=== PATIENT | male | born 1945 | race Caucasian/White ===

== ENCOUNTER → 2016-11-29 | Outpatient (CLI) | payer MEDICARE, OTHER ==
--- NOTE | 2016-11-29 10:32 | US ---
EXAMINATION TYPE: US duplex aorta DATE OF EXAM: 11/29/2016 9:38 AM COMPARISON: NONE CLINICAL HISTORY: R00.1 Bradycardia R00.2 Palpitations. family history of AAA EXAM MEASUREMENTS: Abdominal Aorta: Proximal: 2.3 x 2.0 cm Mid: 1.9 x 1.9 cm Distal: 1.9 x 1.7 cm Bifurcation: right 1.2 x 1.7 cm left 1.3 x 1.5 cm normal caliber aorta IMPRESSION: No evidence for abdominal aortic aneurysm.
== END | disposition home or self-care (01) ==
LOC: RADUSMAIN 09:15
PROVIDERS: ATTEND Family Medicine
DX: R00.1 Bradycardia, unspecified (principal); R00.2 Palpitations
CPT/HCPCS: 93979

== ENCOUNTER 2016-12-29 10:52 | Inpatient (IN) | payer MEDICARE, OTHER ==
[2016-12-29] MEDS ORDERED: SODIUM CHLORIDE 0.9% 1,000 ML IV STA ×2 (11:04)
[2016-12-29 11:12] LABS: Glucose,Whole Blood 120 mg/dL (75-99)
--- NOTE | 2016-12-29 11:34 | CT ---
EXAMINATION TYPE: CT brain wo con DATE OF EXAM: 12/29/2016 11:29 AM COMPARISON: NONE HISTORY: 71-year-old male complains of right side body weakness and numbness. Slowly resolving. TECHNIQUE: Examination was done in axial plane without intravenous contrast. Coronal and sagittal r econstructions performed. CT DLP: 1058 mGycm Automated exposure control for dose reduction was used. FINDINGS: There is no evidence of acute intracranial hemorrhage, acute ischemic changes, mass, mass-effect, or extra-axial fluid collection. There is no effacement of cerebral sulci or basal subarachnoid cister ns. There is no hydrocephalus. There is no midline shift. Thompson-white matter distinction is preserv ed. Minimal patchy periventricular white matter hypodensity suggests minimal burden of chronic small vess el ischemic disease. Paranasal sinuses and mastoid air cells are well pneumatized. Orbits and globes are intact. IMPRESSION: No acute intracranial abnormality seen.
[2016-12-29 11:48] LABS: Basophils # (A) 0.1 k/uL (0-0.2); Basophils % (A) 1 %; CH 31.4; CHCM 34.1; Eosinophils # (A) 0.2 k/uL (0-0.7); Eosinophils % (A) 4 %; HCT 45.3 % (39.0-53.0); HDW 2.58; HGB 15.2 gm/dL (13.0-17.5); Luc # (Auto) 0.16; Luc % (Auto) 3; Lymphocytes % (A) 20 %; MCH 31.1 pg (25.0-35.0); MCHC 33.6 g/dL (31.0-37.0); MCV 92.4 fL (80.0-100.0); Monocytes # (A) 0.4 k/uL (0-1.0); Monocytes % (A) 8 %; Neutrophils # (A) 3.5 k/uL (1.3-7.7); Neutrophils % (A) 65 %; RDW 13.2 % (11.5-15.5); WBC 5.3 k/uL (3.8-10.6); WBC (Perox) 5.39
[2016-12-29 11:57] LABS: ALT 42 U/L (21-72); AST 34 U/L (17-59); Alkaline Phosphatase 55 U/L (38-126); Anion Gap 11 mmol/L; Blood Urea Nitrogen 10 mg/dL (9-20); Calcium 9.6 mg/dL (8.4-10.2); Carbon Dioxide 28 mmol/L (22-30); Chloride 106 mmol/L (98-107); Glucose 114 mg/dL (74-99); Non-African American GFR(MDRD) >60 (>60 ml/min/1.73 sqM); Partial Thromboplastin Time 25.3 sec (22.0-30.0); Potassium 3.9 mmol/L (3.5-5.1); Prothrombin Time 10.3 sec (9.0-12.0); Sodium 145 mmol/L (137-145); Total Bilirubin 0.7 mg/dL (0.2-1.3); Total Protein 7.4 g/dL (6.3-8.2)
[2016-12-29 12:14] LABS: Creatine Kinase 173 U/L (55-170)
--- NOTE | 2016-12-29 12:14 | ED ---
General Adult HPI - General Chief complaint: Neuro Symptoms/Deficit Stated complaint: POSS CVA Time Seen by Provider: 12/29/16 11:02 Source: patient, RN notes reviewed, old records reviewed Mode of arrival: wheelchair Limitations: no limitations - History of Present Illness Initial comments: This is a 71-year-old male here for evaluation neurological complaints. Patient states he is having right arm weakness. And right-sided facial droop. Patient does have significant history consistent with atrial fibrillation. He is on anticoagulation. Patient states he was out working in his yard and a complete failure of his right hand, unable to use unable to lift unable to feel. Patient then went and looked in the mirror and had right-sided facial droop. This did cause includes having a stroke to come to the hospital. Upon driving to the hospital patient's symptoms began to resolve, patient states at this point they are basically resolved. He states he feels maybe a little weak right compared to left but otherwise feeling better. No headache. No recent trauma, no other neurological complaints - Related Data Home Medications Medication Instructions Recorded Confirmed Apixaban [Eliquis] 5 mg PO BID 12/29/16 12/29/16 Atenolol [Tenormin] 25 mg PO DAILY 12/29/16 12/29/16 Flecainide [Tambocor] 50 mg PO Q12HR 12/29/16 12/29/16 Glucosamine Sulfate 500 mg PO DAILY 12/29/16 12/29/16 amLODIPine [Norvasc] 5 mg PO DAILY 12/29/16 12/29/16 Allergies Allergy/AdvReac Type Severity Reaction Status Date / Time Penicillins Allergy Nausea & Verified 12/29/16 11:42 Vomiting Review of Systems ROS Statement: Those systems with pertinent positive or pertinent negative responses have been documented in the HPI. ROS Other: All systems not noted in ROS Statement are negative. Past Medical History Past Medical History: Atrial Fibrillation, Hypertension History of Any Multi-Drug Resistant Organisms: None Reported Past Surgical History: Orthopedic Surgery Additional Past Surgical History / Comment(s): orthopedic , bilateral shoulders , facial/jaw partial digit amputation Past Psychological History: No Psychological Hx Reported Smoking Status: Former smoker Past Alcohol Use History: None Reported Past Drug Use History: None Reported General Exam - General Exam Comments Initial Comments: NIH of 1, R arm weak compared to left Limitations: no limitations General appearance: alert, in no apparent distress Head exam: Present: atraumatic, normocephalic, normal inspection Eye exam: Present: normal appearance, PERRL, EOMI. Absent: scleral icterus, conjunctival injection, periorbital swelling ENT exam: Present: normal exam, mucous membranes moist Neck exam: Present: normal inspection. Absent: tenderness, meningismus, lymphadenopathy Respiratory exam: Present: normal lung sounds bilaterally. Absent: respiratory distress, wheezes, rales, rhonchi, stridor Cardiovascular Exam: Present: regular rate, normal rhythm, normal heart sounds. Absent: systolic murmur, diastolic murmur, rubs, gallop, clicks GI/Abdominal exam: Present: soft, normal bowel sounds. Absent: distended, tenderness, guarding, rebound, rigid Extremities exam: Present: normal inspection, full ROM, normal capillary refill. Absent: tenderness, pedal edema, joint swelling, calf tenderness Back exam: Present: normal inspection Neurological exam: Present: alert, oriented X3, CN II-XII intact Psychiatric exam: Present: normal affect, normal mood Skin exam: Present: warm, dry, intact, normal color. Absent: rash Course Vital Signs 12/29/16 12/29/16 10:55 11:59 Temperature 98.2 F 98.0 F Pulse Rate 53 L 43 L Respiratory 16 18 Rate Blood Pressure 184/87 138/77 O2 Sat by Pulse 98 99 Oximetry - Reevaluation(s) Reevaluation #1: 12/29/16 12:21 Patient is not a TPA candidate secondary to low NIH, resulting of symptoms EKG Findings - EKG Comments: EKG Findings:: EKG shows sinus bradycardia rate of 49, AK 136, QRS 98, QTC 411 Medical Decision Making - Medical Decision Making 68 female here for evaluation of neurological complaints right arm weakness failure, right facial droop. Patient's history of A. fib, multiple different treatments for A. fib, patient is on anticoagulation does take L acquits, patient be admitted for aspirin neurological evaluation and treatment regarding CVA which is resolving improving but still with right-sided deficit, and I - Lab Data Result diagrams: 12/29/16 11:10 12/29/16 11:10 Lab Results 12/29/16 12/29/16 12/29/16 Range/Units 11:06 11:10 11:10 WBC 5.3 (3.8-10.6) k/uL RBC 4.90 (4.30-5.90) m/uL Hgb 15.2 (13.0-17.5) gm/dL Hct 45.3 (39.0-53.0) % MCV 92.4 (80.0-100.0) fL MCH 31.1 (25.0-35.0) pg MCHC 33.6 (31.0-37.0) g/dL RDW 13.2 (11.5-15.5) % Plt Count 168 (150-450) k/uL Neutrophils % 65 % Lymphocytes % 20 % Monocytes % 8 % Eosinophils % 4 % Basophils % 1 % Neutrophils # 3.5 (1.3-7.7) k/uL Lymphocytes # 1.0 (1.0-4.8) k/uL Monocytes # 0.4 (0-1.0) k/uL Eosinophils # 0.2 (0-0.7) k/uL Basophils # 0.1 (0-0.2) k/uL PT (9.0-12.0) sec INR (<1.1) APTT (22.0-30.0) sec Sodium 145 (137-145) mmol/L Potassium 3.9 (3.5-5.1) mmol/L Chloride 106 (98-107) mmol/L Carbon Dioxide 28 (22-30) mmol/L Anion Gap 11 mmol/L BUN 10 (9-20) mg/dL Creatinine 0.92 (0.66-1.25) mg/dL Est GFR (MDRD) Af Amer >60 (>60 ml/min/1.73 sqM) Est GFR (MDRD) Non-Af >60 (>60 ml/min/1.73 sqM) Glucose 114 H (74-99) mg/dL POC Glucose (mg/dL) 120 H (75-99) mg/dL POC Glu Sealer Sander ID Keron Abebe Calcium 9.6 (8.4-10.2) mg/dL Total Bilirubin 0.7 (0.2-1.3) mg/dL AST 34 (17-59) U/L ALT 42 (21-72) U/L Alkaline Phosphatase 55 (38-126) U/L Total Protein 7.4 (6.3-8.2) g/dL Albumin 4.3 (3.5-5.0) g/dL 12/29/16 Range/Units 11:10 WBC (3.8-10.6) k/uL RBC (4.30-5.90) m/uL Hgb (13.0-17.5) gm/dL Hct (39.0-53.0) % MCV (80.0-100.0) fL MCH (25.0-35.0) pg MCHC (31.0-37.0) g/dL RDW (11.5-15.5) % Plt Count (150-450) k/uL Neutrophils % % Lymphocytes % % Monocytes % % Eosinophils % % Basophils % % Neutrophils # (1.3-7.7) k/uL Lymphocytes # (1.0-4.8) k/uL Monocytes # (0-1.0) k/uL Eosinophils # (0-0.7) k/uL Basophils # (0-0.2) k/uL PT 10.3 (9.0-12.0) sec INR 1.0 (<1.1) APTT 25.3 (22.0-30.0) sec Sodium (137-145) mmol/L Potassium (3.5-5.1) mmol/L Chloride (98-107) mmol/L Carbon Dioxide (22-30) mmol/L Anion Gap mmol/L BUN (9-20) mg/dL Creatinine (0.66-1.25) mg/dL Est GFR (MDRD) Af Amer (>60 ml/min/1.73 sqM) Est GFR (MDRD) Non-Af (>60 ml/min/1.73 sqM) Glucose (74-99) mg/dL POC Glucose (mg/dL) (75-99) mg/dL POC Glu Sealer Sander ID Calcium (8.4-10.2) mg/dL Total Bilirubin (0.2-1.3) mg/dL AST (17-59) U/L ALT (21-72) U/L Alkaline Phosphatase (38-126) U/L Total Protein (6.3-8.2) g/dL Albumin (3.5-5.0) g/dL - Radiology Data Radiology results: report reviewed (CT brain is negative for acute disease), image reviewed Disposition Clinical Impression: Transient cerebral ischemia, Cerebrovascular accident Disposition: ADMITTED IP TO THIS HOSP Condition: Serious Referrals: Sherwin Mena DO [Primary Care Provider] - 1-2 days
[2016-12-29] MEDS ORDERED: ASPIRIN 325 MG TAB PO STA (12:18)
[2016-12-29 12:26] LABS: Creatine Kinase MB 2.3 ng/mL (0.0-2.4); Troponin I <0.012 ng/mL (0.000-0.034)
--- NOTE | 2016-12-29 13:20 | US ---
EXAMINATION TYPE: US carotid duplex BILAT DATE OF EXAM: 12/29/2016 12:52 PM COMPARISON: CT neck December 05, 2011 CLINICAL HISTORY: Stenosis. EXAM MEASUREMENTS: RIGHT: Peak Systolic Velocity (PSV) cm/sec ----- Right CCA: 72.4 ----- Right ICA: 71.3 ----- Right ECA: 60.6 ICA/CCA ratio: 1.0 RIGHT: End Diastole cm/sec ----- Right CCA: 18.6 ----- Right ICA: 25.0 ----- Right ECA: 7.1 LEFT: Peak Systolic Velocity (PSV) cm/sec ----- Left CCA: 57.9 ----- Left ICA: 90.2 ----- Left ECA: 81.1 ICA/CCA ratio: 1.6 LEFT: End Diastole cm/sec ----- Left CCA: 13.9 ----- Left ICA: 19.7 ----- Left ECA: 11.7 VERTEBRALS (direction of flow): Right Vertebral: Antegrade Left Vertebral: Antegrade Mild atherosclerotic changes on right, moderate to severe plaque in left bulb with no significant hanna ocity increases seen bilaterally. Grayscale images show no significant plaque at right carotid bulb. There is more prominent heterogene ous hypoechoic plaque at left carotid bulb. Velocity measurements and ratios remain within normal velez its in both internal carotid arteries. IMPRESSION: Asymmetric focal plaque left carotid bulb without hemodynamically significant stenosis c learly seen in either internal carotid artery.
[2016-12-29] MEDS: SODIUM CHLORIDE 0.9% 1,000 ML IV SCH ×2 (14:47→20:30)
[2016-12-29] MEDS: FLECAINIDE 50 MG TAB PO SCH (20:25)
[2016-12-29] MEDS: APIXABAN 5 MG TAB PO SCH (20:29)
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
--- NOTE | 2016-12-30 08:17 | MR ---
EXAMINATION TYPE: MR brain wo con DATE OF EXAM: 12/30/2016 8:03 AM COMPARISON: CT brain from yesterday HISTORY: Left hemispheric TIA vs. stroke. Admitted for right-sided weakness and numbness yesterday. TECHNIQUE: Multiplanar, multisequence imaging of the brain and brainstem is performed without IV cont rast. FINDINGS: Diffusion weighted images punctate areas of increased signal on diffusion-weighted images with dimini shed signal on ADC mapping involving the subcortical posterior left frontal lobe with T2 hyperintensi ty, most prominent level is seen image 200 series 305, subtle T1 hypointensity is felt present. Findi ng is consistent with area of evolving acute infarct. There is no worrisome extra-axial fluid collection. The ventricular system and cisternal spaces are normal in size and appearance. The brain volume is age appropriate. There are scattered focal and co nfluent areas of T2 hyperintensity seen throughout the deep and periventricular white matter. Lesions are nonspecific in appearance and distribution. They are most likely on basis of product of chronic small vessel ischemic change in patient of this age. Midline structures demonstrate normal morphology. The craniocervical junction appears within normal limits. Normal vascular flow voids are present. The visualized sinuses are clear and the globes are i ntact. IMPRESSION: 1. Small areas of evolving acute lacunar infarction posterior high left frontal lobe are confirmed. 2. There is background fairly moderate chronic small vessel ischemic change noted seen better on MRI versus CT.
[2016-12-30] MEDS: FLECAINIDE 50 MG TAB PO SCH (08:29)
[2016-12-30] MEDS ORDERED: amLODIPine 5 MG TAB PO SCH (09:00)
[2016-12-30] MEDS ORDERED: ATENOLOL 25 MG TAB PO SCH (09:00)
[2016-12-30] MEDS ORDERED: ASPIRIN 325 MG TAB PO SCH (09:00)
[2016-12-30] MEDS ORDERED: NON-FORMULARY DRUG (Glucosamine Sulfate 500 MG) PO SCH (09:00)
[2016-12-30] MEDS: SODIUM CHLORIDE 0.9% 1,000 ML IV SCH (09:40)
[2016-12-30] MEDS: APIXABAN 5 MG TAB PO SCH (09:50)
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
[2016-12-30] MEDS ORDERED: amLODIPine 5 MG TAB PO ONE (10:15)
[2016-12-30 11:17] VITALS: BP 161/81; PULSE 98; RESP 18; TEMP 97
--- NOTE | 2016-12-30 13:13 | P.PN ---
Subjective This patient is a 71 year old being evaluated yesterday for possible left hemispheric stroke. The patient presented with symptoms of right hand weakness and right facial droop. These symptoms did resolve by the time he was admitted to the hospital. Yesterday evening on his neurological exam he had no neuro deficits is specifically no right hand chief lifestyle officer weakness or no evidence of right facial droop. Patient was recommended to undergo MRI of the brain for further evaluation. MRI was completed this morning and does reveal evidence of an acute lacunar infarct in the high left frontal lobe. The MRI films were reviewed. These are very small areas of infarction in the high left frontal lobe. This would explain his initial symptoms that he presented with yesterday. We did discuss these findings today with the dam worker Dr. Mead. He is recommending that he should continue with anticoagulation with Eliquis. He is also recommending to add one baby aspirin 81 mg daily in addition to this anticoagulant. We discussed these findings today in detail with the patient and his . We reviewed the results of the MRI today with the patient. He is currently on Eliquis for treatment of paroxysmal atrial fibrillation. Carotid Doppler study showed no dynamically significant stenosis. Patient was seen by cardiology today. Cardiology feels that his recent episode is secondary to hypertension rather than his atrial fibrillation. Patient will need to follow-up with his dam worker soon after discharge. They did increase his dose of Norvasc. He is to continue on his current anticoagulation regimen. Patient may be discharged home later today and should follow-up in the outpatient neurology clinic in 2-3 weeks. All of his findings were discussed at length with the patient and his . Objective - Vital Signs Vital signs: Vital Signs Temp 97.9 F 12/30/16 08:00 Pulse 59 L 12/30/16 08:00 Resp 16 12/30/16 08:00 BP 186/84 12/30/16 08:00 Pulse Ox 97 12/30/16 03:33 Intake & Output 12/29/16 12/30/16 12/30/16 18:59 06:59 18:59 Intake Total 1180 1600 Output Total 950 Balance 1180 650 Weight 88.6 kg 87.5 kg Intake: IV 1600 Sodium Chloride 0.9% 1, 1600 000 ml @ 100 mls/hr IV . Q10H [facility] Rx#:[id number] Intake, IV Titration 1000 Amount Sodium Chloride 0.9% 1, 1000 000 ml @ 999 mls/hr IV . Q1H1M [facility] Rx#:[id number] Oral 180 Output: Urine 950 - Exam Physical Examination: PHYSICAL EXAMINATION: Patient is resting comfortably in bed. VITAL SIGNS: Blood pressure is [161/81]. Heart rate is [98]. Respiration is [18] . Temperature is [97.0]. HEENT: Head is atraumatic, neck is supple, there were no carotid bruits. CHEST: Lungs are clear to auscultation and percussion. CARDIAC: S1, S2 normal rate and rhythm. There is no murmur. ABDOMEN: Soft and nontender. Bowel sounds are present. EXTREMITIES: There is no pedal edema. Peripheral pulses are present. Neurological examination: Patient's neurological examination is nonfocal today on exam. - Labs CBC & Chem 7: 12/29/16 11:10 12/29/16 11:10 Assessment and Plan (1) TIA (transient ischemic attack) Status: Acute Code(s): G45.9 - TRANSIENT CEREBRAL ISCHEMIC ATTACK, UNSPECIFIED (2) Paroxysmal atrial fibrillation Status: Acute Code(s): I48.0 - PAROXYSMAL ATRIAL FIBRILLATION (3) Hypertension Status: Acute Code(s): I10 - ESSENTIAL (PRIMARY) HYPERTENSION (4) Hyperlipidemia Status: Acute Code(s): E78.5 - HYPERLIPIDEMIA, UNSPECIFIED Plan: This patient is a 71-year-old male who was initially admitted to hospital yesterday with symptoms suggesting possibility of left hemispheric TIA versus stroke. He presented to Hospital with acute right hand weakness. His symptoms did resolve very quickly within a period of 30-40 minutes. He was up slowly admitted to hospital yesterday. He was seen in neurology consultation yesterday. He has a history of paroxysmal atrial fibrillation. He had just recently been started on Eliquis for long-term anticoagulation. He was sent for MRI of the brain today which did reveal evidence of small area of acute stroke in the high left frontal lobe. MRI films were reviewed. We are recommending the patient to continue on anticoagulation plus one baby aspirin. His neurological examination remains nonfocal. He is to be considered for discharge home today and may follow-up in the outpatient neurology clinic in 2- 3 weeks. Case was discussed today at length with Dr. Mead. He is in agreement with our recommendations for long-term anticoagulation. He should follow up with cardiology as recommended at the time of discharge. His overall prognosis at this time remains guarded.
--- NOTE | 2016-12-30 21:34 | HP ---
DATE OF ADMISSION: 12/29/2016 HISTORY AND PHYSICAL AND DISCHARGE SUMMARY REASON FOR ADMISSION: Right-sided weakness. HISTORY OF PRESENT ILLNESS: This is a 71-year-old pleasant gentleman comes in the hospital after noticing acute onset right-sided weakness. Patient states that the onset of symptoms were noted a right upper arm weakness but lasted about one hour were resolved by the time patient was seen in the emergency room. Patient has a history of palpitations and was evaluated by Dr. Kumar and was recently placed on Flecainide and anticoagulation. The patient has not been tolerating the medication well. Was to see Dr. Kumar on Sunday in regards to change in management. The patient denies having any previous history of strokes. At the time of my evaluation, patient denies having any headaches, blurry vision, nausea, vomiting, diarrhea, urinary urgency or frequency. No motor or sensory weakness were reported. Patient is having any previous episodes of bleeding. Past medical history includes: Atrial fibrillation, hypertension, pneumonia, osteoarthritis, throat cancer. Surgical history includes orthopedic surgery. Multiple shoulder surgeries. Multiple digit amputations. SOCIAL HISTORY: History includes former smoker. Denies illicit drug use or alcohol use. Medications include: 1. Eliquis. 2. Tenormin. 3. Tambocor. 4. Norvasc 5 mg p.o. daily. Medications were reviewed appropriately and reconciled on admission and discharge. FAMILY HISTORY: Not pertinent to current admission. No significant history of strokes reported. ALLERGIES: PENICILLIN. REVIEW OF SYSTEMS: Fourteen-point review of system was done; none pertinent other than mentionable. PHYSICAL EXAM: Temperature is , heart rate is , respiration rate is per minute, blood pressure is and patient is saturating % on room air. GENERALLY: Patient appears to be alert, oriented x3. HEENT: The pupils are equal and reactive to light and accommodation. HEART: S1, S2 present. No murmur appreciated. LUNGS: Good air entry. No wheezing or rhonchi noted. ABDOMINAL EXAM: Soft, nontender, no organomegaly appreciated. GENITOURINARY: No Morales in place. EXTREMITIES: Pulses can be palpated distally. Denies any tenderness on gross palpation. SKIN: On a gross skin exam does not appear to have any purpura or any skin rashes that were noted. NEUROLOGICALLY: Grossly cranial nerves 2-12 intact. No motor or sensory deficits noted. Laboratory data include hemoglobin 15.8, hematocrit 45 .3, white count 5.3, platelets 168. Sodium 140, potassium 3.9, chloride 106, bicarb 20. BUN 10, creatinine of 1.92. ASSESSMENT AND PLAN: 1. Acute left lacunar infarct although symptoms did not appear to be related to the current episode, patient's symptoms of right-sided weakness appear to have resolved. 2. Paroxysmal atrial fibrillation. 3. Hypertension. 4. Dyslipidemia. 5. History of throat cancer 6. Remote history of tobacco use. Patient underwent appropriate evaluation including carotid studies. Patient appears to be in sinus rhythm on discharge. Patient does not have any hemodynamically significant stenosis of the carotid system. Currently on full anticoagulation with Apixaban. Did discuss the risks and benefits with stroke. I did start the patient on atorvastatin 20 mg, aspirin 81 mg to be started. The patient will continue with the rest of the medications. Patient is to follow up with Dr. Kumar on Sunday to discuss further treatment plans. Patient intermittently taking Tambocor as tolerated as patient has been having symptoms of dizziness due to it. The patient was evaluated by a neurologist and a electrical assemblies supervisor who agree with current plan. Patient is discharged home in stable condition.
--- NOTE | 2016-12-30 22:30 | EEG ---
DATE OF SERVICE: 12/30/2016 INDICATIONS FOR EXAMINATION: This patient is a 71 -year-old male being evaluated for sudden onset of right sided weakness and transient ischemic attack. MRI reveals evidence of acute left frontal lobe stroke. AGE: 71Y EEG FINDINGS: A routine 21 channel awake digital EEG recording was accomplished utilizing the 10-20 international system with bipolar and referential montages. The background activity in the most alert resting state consists of a low to medium amplitude, fairly well developed and well sustained 7-8 Hz activity over the posterior head regions. This posterior rhythm attenuates to eye opening. There is a small amount of low amplitude 18-20 Hz beta activity seen maximally over the anterior head regions. Muscle and movement artifact was observed on a few occasions during the tracing. Hyperventilation was not performed. Photic stimulation at flash frequencies of 2-30 Hz produced a good symmetrical, occipital driving response. No epileptiform discharges were seen. IMPRESSION: This EEG is within normal limits for the patient's age. The EEG failed to reveal any focal, lateralized or epileptiform abnormalities. Clinical correlation is recommended.
[2016-12-31] MEDS ORDERED: amLODIPine 10 MG TAB PO SCH (09:00)
== END 2016-12-30 14:54 | disposition home or self-care (01) | DRG 65 ==
LOC: EC 10:52 → 6SEL 12:18
PROVIDERS: ADMIT Family Medicine; ATTEND Family Medicine
DX: I63.9 Cerebral infarction, unspecified (principal); G81.91 Hemiplegia, unspecified affecting right dominant side; I48.0 Paroxysmal atrial fibrillation; I10 Essential (primary) hypertension; R29.810 Facial weakness; T46.2X5A Adverse effect of other antidysrhythmic drugs, initial encounter; R29.701 NIHSS score 1; E78.5 Hyperlipidemia, unspecified; M19.041 Primary osteoarthritis, right hand; M19.042 Primary osteoarthritis, left hand; N40.0 Benign prostatic hyperplasia without lower urinary tract symptoms; M19.071 Primary osteoarthritis, right ankle and foot; M19.072 Primary osteoarthritis, left ankle and foot; R42 Dizziness and giddiness; Z87.891 Personal history of nicotine dependence; Z79.899 Other long term (current) drug therapy; Z79.01 Long term (current) use of anticoagulants; Z92.3 Personal history of irradiation; Z85.828 Personal history of other malignant neoplasm of skin; Z82.5 Family history of asthma and other chronic lower respiratory diseases; Z88.0 Allergy status to penicillin; Z87.828 Personal history of other (healed) physical injury and trauma; Z87.81 Personal history of (healed) traumatic fracture; Z80.0 Family history of malignant neoplasm of digestive organs; Z85.819 Personal history of malignant neoplasm of unspecified site of lip, oral cavity, and pharynx; Z87.01 Personal history of pneumonia (recurrent); Z89.021 Acquired absence of right finger(s); Z82.49 Family history of ischemic heart disease and other diseases of the circulatory system
CPT/HCPCS: 36415; 70450; 70551; 80053; 82550; 82553; 84484; 85025; 85610; 85730; 93005; 93880; 95819; 96360; 99285

== ENCOUNTER 2017-01-18 16:21 | Day surgery (SDC) | payer MEDICARE, OTHER ==
[2017-01-16 15:12] VITALS: BMI 28.3
[~2017-01-18 16:21] MED LIST: CLINDAMYCIN 600 MG in SODIUM CHLORIDE 0.9% IRRIGATIO 250 ML IRRIGATION ONE; CLINDAMYCIN 900 MG in DEXTROSE 5% IN WATER 50 ML IVPB ONE; SODIUM CHLORIDE 0.9% 1,000 ML IV SCH
[2017-01-18] MEDS ORDERED: IOHEXOL 350 MG/ML 50ML BOTTLE INJ ONE (18:09)
[2017-01-18] MEDS ORDERED: MIDAZOLAM 2 MG/2 ML VIAL ONE (18:19)
[2017-01-18] MEDS: MIDAZOLAM 2 MG/2 ML VIAL IV ONE ×2 (18:20→18:47)
[2017-01-18] MEDS ORDERED: fentaNYL (PF) 50 MCG/ML 2 ML AMP ONE (18:24)
[2017-01-18] MEDS ORDERED: fentaNYL (PF) 50 MCG/ML 2 ML AMP IV ONE (18:26)
[2017-01-18] MEDS ORDERED: LIDOCAINE 1% (PF) 10MG/ML VIAL SQ ONE (18:26)
[2017-01-18] MEDS ORDERED: LIDOCAINE 1% INJ 10MG/ML (10 ML MDV) SQ ONE ×4 (18:26→18:33)
[2017-01-18] MEDS ORDERED: ACETAMINOPHEN IV (For NPO) 1,000 MG in EMPTY BAG 1 BAG IVPB ONE (19:24)
[2017-01-18] MEDS ORDERED: HYDROcodone/APAP 5-325MG 1 EACH TAB PO PRN (19:24)
--- NOTE | 2017-01-18 20:23 | PCN ---
DATE OF PROCEDURE: Kirk Morales is a 71-year-old male patient who has symptomatic sick sinus syndrome with sinus arrest and sinus pauses as well as atrial fibrillation. He has tachybrady syndrome. He complained of dizziness and his monitor showed long sinus pauses and sinus arrest, and therefore a dual-chamber pacemaker was advised by Dr. Kumar, his primary radio presenter. The patient was brought to the EP lab in a fasting state. Written informed consent was obtained prior to the procedure. The left shoulder area was prepped and draped as per protocol. Lidocaine 1% was used for local anesthesia. A 4 cm incision was made parallel to the deltopectoral groove about 1.5 cm medial to it. The incision was carried down to the level of the pectoralis muscle. A subfascial pocket was made. Hemostasis was assured. The left axillary vein was accessed at 2 separate points under fluoroscopy, and via appropriate-sized introducer sheaths, 2 leads were positioned in the right heart. The atrial lead was a Solia s45 cm lead, [employer], serial #[id number]. The lead was screwed into the right atrial appendage. P waves were 1.9 mV, pacing threshold was 0.7 v at 0.4 ms, pacing impedance of 507 ohms. Ten-volt test was negative. The RV lead was a Solia s60, serial #[id number]. This was positioned in the RV apex. R waves 17.9 mV, pacing impedance of 668 ohms, pacing threshold 0.8 v at 0.4 ms. Ten-volt test was negative. Both leads were then secured to the underlying pectoralis fascia using 2 non-absorbable sutures. Pocket was irrigated with antibiotic solution. The leads were connected to the generator Aluna 8 DR-D, serial #[id number]. The leads and generator were then placed in the subfascial pocket and the wound was closed in 3 layers and dressed per protocol. The device was then programmed to DDR at 50 to 120 bpm. RESULT: Successful dual-chamber pacemaker implantation for symptomatic sick sinus syndrome with sinus pauses and sinus arrest. PLAN: Continue anticoagulation with Eliquis. Patient also has paroxysmal atrial fibrillation.
--- NOTE | 2017-01-18 20:25 | LTR ---
January 18, 2017 RE: Kirk Morales Dear Sherwin, I had the pleasure of seeing Kirk Morales in electrophysiology followup. He successfully underwent a dual-chamber pacemaker implantation for symptomatic sick sinus syndrome with sinus pauses and sinus arrest. He will continue to follow with you and Dr. Kumar as before and he will continue anticoagulation for paroxysmal atrial fibrillation. Thank you for entrusting me with the care of your patient. Warm regards. Sincerely, CORBIN MARTE MD
[2017-01-18] MEDS: APIXABAN 5 MG TAB PO SCH (22:00)
[2017-01-18] MEDS: CLINDAMYCIN 900 MG in DEXTROSE 5% IN WATER 50 ML IVPB SCH ×2 (23:36)
[2017-01-19] MEDS: ACETAMINOPHEN TAB 325 MG TAB PO PRN ×2 (01:25→07:01)
[2017-01-19] MEDS: CLINDAMYCIN 900 MG in DEXTROSE 5% IN WATER 50 ML IVPB SCH ×6 (06:12→16:46)
--- NOTE | 2017-01-19 08:25 | XR ---
EXAMINATION TYPE: XR chest 2V DATE OF EXAM: 01/19/2017 6:37 AM COMPARISON: 12/21/2011 INDICATION: Pacemaker placement check TECHNIQUE: Single frontal view of the chest is obtained. FINDINGS: The heart size is normal. The pulmonary vasculature is normal. The lungs are clear. No pneumothorax is evident. Pacemaker overlies left chest. Leads appear appropriate in the frontal an d lateral views. Old right rib fracture is present. IMPRESSION: 1. No pneumothorax post pacemaker placement
[2017-01-19] MEDS ORDERED: ATORVASTATIN 20 MG TAB PO SCH (09:00)
[2017-01-19] MEDS ORDERED: ATENOLOL 25 MG TAB PO SCH (09:00)
[2017-01-19] MEDS ORDERED: amLODIPine 10 MG TAB PO SCH (09:00)
--- NOTE | 2017-01-19 09:31 | DS ---
DATE OF ADMISSION: 01/18/2017 DATE OF DISCHARGE: Mr. Morales underwent a dual-chamber pacemaker implantation yesterday. He is doing very well. His vitals are stable. He has no chest discomfort. He has minimal tenderness, no swelling at that site. Heart sounds are normal. Normal S1, normal S2, rhythm is regular. Breath sounds are normal. No rhonchi. No crackles, equal air entry bilaterally. Chest x-ray is within normal limits. Blood pressure is normal, 140/79 mmHg, heart rate is in the 50s. IMPRESSION: 1. Sick sinus syndrome with sinus pauses with dizziness. 2. Paroxysmal atrial fibrillation with rapid ventricular response. Antiarrhythmic drugs were on hold. PLAN: Continue anticoagulation. Restart flecainide and beta blockers now. Follow up in the office in 5 days . Follow up with Dr. Kumar as scheduled. If he continues to have symptomatic breakthrough episodes of atrial fibrillation, then pulmonary vein isolation should be considered in the future.
[2017-01-19] MEDS: APIXABAN 5 MG TAB PO SCH (10:25)
[2017-01-19 17:37] VITALS: BP 153/97; PULSE 64; RESP 16; TEMP 97.8
== END 2017-01-19 17:45 | disposition home or self-care (01) ==
LOC: CATHEP 16:21 → 3OBS 20:02 → CATHEP 01-19 17:45
PROVIDERS: ATTEND Internal Medicine Clinical Cardiac Electrophysiology
DX: I49.5 Sick sinus syndrome (principal); I48.0 Paroxysmal atrial fibrillation; R42 Dizziness and giddiness; I10 Essential (primary) hypertension; Z86.73 Personal history of transient ischemic attack (TIA), and cerebral infarction without residual deficits; Z79.01 Long term (current) use of anticoagulants; Z79.899 Other long term (current) drug therapy
CPT/HCPCS: 33208; 71020; C1785; C1898; J2250; J3010; J2001; Q9967

== ENCOUNTER → 2018-12-12 | Outpatient (CLI) | payer MEDICARE, OTHER ==
--- NOTE | 2018-12-12 12:02 | XR ---
EXAMINATION TYPE: XR chest 2V DATE OF EXAM: 12/12/2018 COMPARISON: 01/19/2017 TECHNIQUE: PA and lateral views submitted. HISTORY: Cough FINDINGS: The lungs are clear and there is no pneumothorax, pleural effusion, or focal pneumonia. Hypertrophi c and degenerative change of the vertebral column. Heart size normal. Chronic deformities of the spin e clavicle bilaterally. Chronic rib cage deformities noted suggestive of remote trauma. No overt fail ure. Atherosclerotic change aorta. IMPRESSION: 1. No acute process.
== END | disposition home or self-care (01) ==
LOC: RADXRMAIN 11:37
PROVIDERS: ATTEND Family Medicine
DX: R05 Cough (principal)
CPT/HCPCS: 71046

== ENCOUNTER 2020-06-21 06:13 | Day surgery (SDC) | payer MEDICARE, OTHER ==
[2020-06-16 15:20] VITALS: BMI 27.3
[~2020-06-21 06:13] MED LIST changes: +ACETAMINOPHEN TAB 500 MG TAB PO ONE; -CLINDAMYCIN 600 MG in SODIUM CHLORIDE 0.9% IRRIGATIO 250 ML IRRIGATION ONE; -CLINDAMYCIN 900 MG in DEXTROSE 5% IN WATER 50 ML IVPB ONE; +HEPARIN SODIUM,PORCINE 5,000 UNIT/ML 1 ML VIAL SQ ONE; +Pre Op ABX Message 1 EACH MISC MISCELLANE ONE; -SODIUM CHLORIDE 0.9% 1,000 ML IV SCH
[2020-06-21] MEDS ORDERED: ONDANSETRON 4 MG/2 ML VIAL IVP ONE (06:34)
[2020-06-21] MEDS ORDERED: DEXAMETHASONE SOD PHOSPHATE 10 MG/ML 1 ML VIAL IV ONE (06:34)
[2020-06-21] MEDS ORDERED: HYDROmorphone 0.5 MG/0.5 ML SYRINGE IVP PRN (06:34)
[2020-06-21] MEDS ORDERED: LACTATED RINGERS 1,000 ML IV SCH (06:34)
[2020-06-21 06:44] VITALS: TEMP 96.8
[2020-06-21] MEDS ORDERED: LIDOCAINE 1% (10MG/ML) FOR IV START INTRADERMA ONE (07:06)
[2020-06-21] MEDS ORDERED: BUPIVACAINE (PF) 0.5% 30 ML VIAL SQ ONE (07:29)
[2020-06-21] MEDS ORDERED: MIDAZOLAM 2 MG/2 ML VIAL ONE (07:41)
[2020-06-21] MEDS ORDERED: fentaNYL (PF) 50 MCG/ML 2 ML AMP ONE (07:41)
[2020-06-21] MEDS ORDERED: PROPOFOL 10 MG/ML 20 ML VIAL IV ONE (07:41)
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
--- NOTE | 2020-06-21 08:35 | P.OP ---
Date of Procedure: 06/21/20 Preoperative Diagnosis: Melanoma right upper back Postoperative Diagnosis: Melanoma right upper back Procedure(s) Performed: Wide local excision melanoma right upper back Anesthesia: MAC Surgeon: Steve Samayoa Estimated Blood Loss (ml): 5 Pathology: other (Melanoma) Condition: stable Disposition: PACU Description of Procedure: The patient's placed on the operative table in the lateral position. He received IV sedation. His back melanoma was prepped and draped usual sterile fashion. The skin was anesthetized 1% local Xylocaine. An elliptical skin incision was then made. The specimen measured approximately 3 x 2.5 cm. The Bovie was used to hemostase's. The skin was closed interrupted 2-0 nylon suture. Patient top she will was sent to recovery room stable condition.
[2020-06-21 08:39] VITALS: BP 124/73; PULSE 53; RESP 18
== END 2020-06-21 09:15 | disposition home or self-care (01) ==
LOC: OR 06:13
PROVIDERS: ATTEND Surgery
DX: C43.59 Malignant melanoma of other part of trunk (principal); I48.91 Unspecified atrial fibrillation; Z86.73 Personal history of transient ischemic attack (TIA), and cerebral infarction without residual deficits; I10 Essential (primary) hypertension; M19.90 Unspecified osteoarthritis, unspecified site; Z87.01 Personal history of pneumonia (recurrent); N42.9 Disorder of prostate, unspecified; Z85.819 Personal history of malignant neoplasm of unspecified site of lip, oral cavity, and pharynx; Z92.3 Personal history of irradiation; Z85.828 Personal history of other malignant neoplasm of skin; Z98.890 Other specified postprocedural states; Z89.021 Acquired absence of right finger(s); Z98.42 Cataract extraction status, left eye; Z98.41 Cataract extraction status, right eye; Z87.891 Personal history of nicotine dependence; Z82.5 Family history of asthma and other chronic lower respiratory diseases; Z80.8 Family history of malignant neoplasm of other organs or systems; Z82.49 Family history of ischemic heart disease and other diseases of the circulatory system; Z79.01 Long term (current) use of anticoagulants; Z79.899 Other long term (current) drug therapy; Z88.0 Allergy status to penicillin
CPT/HCPCS: 11606; J2250; J1100; J2405; J3010; J2704; 88305; 88341; 88342

== ENCOUNTER 2020-07-02 08:44 | Emergency (ER) | payer MEDICARE, OTHER ==
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
[2020-07-02] MEDS ORDERED: LIDOCAINE 1% INJ 10MG/ML (20 ML MDV) SQ ONE (09:27)
[2020-07-02] MEDS ORDERED: BACITRACIN OINT 1 EACH PACKET TOPICAL ONE (10:41)
[2020-07-02 10:54] VITALS: BP 149/88; PULSE 62; RESP 14; TEMP 97.9
== END 2020-07-02 10:54 | disposition home or self-care (01) ==
LOC: EC 08:44
DX: T81.30XA Disruption of wound, unspecified, initial encounter (principal); I48.91 Unspecified atrial fibrillation; I10 Essential (primary) hypertension; Z79.01 Long term (current) use of anticoagulants; Z88.0 Allergy status to penicillin; Z79.899 Other long term (current) drug therapy; Z98.42 Cataract extraction status, left eye; Z98.41 Cataract extraction status, right eye; Z85.89 Personal history of malignant neoplasm of other organs and systems; Z86.73 Personal history of transient ischemic attack (TIA), and cerebral infarction without residual deficits; Z85.828 Personal history of other malignant neoplasm of skin
CPT/HCPCS: 99283 ×2; 12002 ×2; J2001

== ENCOUNTER → 2021-03-14 | Outpatient (CLI) | payer MEDICARE, OTHER ==
[2021-03-14 14:43] LABS: Albumin 4.3 g/dL (3.80-4.90); Albumin/Globulin Ratio 1.79 (1.60-3.17); BUN/Creat Ratio 14.62 Ratio (12.00-20.00); Calcium 9.7 mg/dL (8.7-10.3); Chol/HDL Ratio 3.41; Globulin 2.4 g/dL (1.6-3.3); LDL Cholesterol,Calculated 85.6 mg/dL (0.0-131.0); Non-African American GFR(CKD) 52.6 (60.0-200.0); Potassium 3.4 mmol/L (3.5-5.5); Total Bilirubin 0.4 mg/dL (0.3-1.2); Total Protein 6.7 g/dL (6.2-8.2); VLDL Calculation 25.4 mg/dL (5.00-40.00)
== END | disposition home or self-care (01) ==
LOC: LABWHC1 08:41
PROVIDERS: ATTEND Internal Medicine Interventional Cardiology
DX: E78.2 Mixed hyperlipidemia (principal)
CPT/HCPCS: 36415; 80053; 80061

== ENCOUNTER → 2021-03-28 | Outpatient (CLI) | payer MEDICARE, OTHER ==
[2021-03-28 15:23] LABS: African American GFR (CKD) 55.8 (60.0-200.0); Anion Gap 9.3 mmol/L (4.00-12.00); BUN/Creat Ratio 14.29 Ratio (12.00-20.00); Calcium 10.2 mg/dL (8.7-10.3); Carbon Dioxide 28.7 mmol/L (21.6-31.8); Non-African American GFR(CKD) 48.1 (60.0-200.0); Potassium 3.6 mmol/L (3.5-5.5)
== END | disposition home or self-care (01) ==
LOC: LABWHC1 09:13
PROVIDERS: ATTEND Nurse Practitioner Adult Health
DX: N18.9 Chronic kidney disease, unspecified (principal)
CPT/HCPCS: 36415; 80048

== ENCOUNTER → 2022-03-01 | Outpatient (CLI) | payer MEDICARE ==
--- NOTE | 2022-03-01 20:11 | US ---
EXAMINATION TYPE: US extremity nonvasc mass LT DATE OF EXAM: 03/01/2022 COMPARISON: NONE CLINICAL HISTORY: M25.522 PAIN IN LEFT ELBOW. Fluid seen in antecubital fossa. Increased vascularity seen at this area. IMPRESSION: Nonspecific fluid collection at the antecubital fossa with increased vascularity seen. In fected collection is difficult to exclude. Correlate clinically.
== END | disposition home or self-care (01) ==
LOC: RADUSWWP 15:29
PROVIDERS: ATTEND Orthopaedic Surgery
DX: M25.522 Pain in left elbow (principal)

== ENCOUNTER → 2023-01-31 | Outpatient (CLI) | payer MEDICARE ==
--- NOTE | 2023-02-01 14:58 | CT ---
EXAMINATION TYPE: CT hip RT wo con DATE OF EXAM: 01/31/2023 COMPARISON: None HISTORY: right hip pain CT DLP: 380.3 mGycm Automated exposure control for dose reduction was used. Contrast: None Technique: Axial images 3 mm thick sections. Reconstructed images in the coronal and sagittal planes. 3-D reconstructed images are performed by the technologist on a separate computer.. FINDINGS: No acute fractures are evident. Femoral head articulates with the acetabulum. Joint space is diffusel y narrowed which can be related to mild osteoarthritic degenerative changes. Musculature appears unre markable. IMPRESSION: 1. MILD OSTEOARTHRITIC DEGENERATIVE CHANGE RIGHT HIP
== END | disposition home or self-care (01) ==
LOC: RADCTMAIN 16:39
PROVIDERS: ATTEND Orthopaedic Surgery
DX: M16.11 Unilateral primary osteoarthritis, right hip (principal); M70.61 Trochanteric bursitis, right hip; Z95.0 Presence of cardiac pacemaker

== ENCOUNTER → 2023-04-27 | Outpatient (CLI) | payer MEDICARE ==
[2023-04-28 01:44] LABS: Basophils # (A) 0.05 X 10*3/uL (0.00-0.10); Basophils % (A) 0.7 %; Eosinophils # (A) 0.17 X 10*3/uL (0.04-0.35); Eosinophils % (A) 2.3 %; HCT 43.8 % (39.6-50.0); HGB 14.3 d/dL (13.0-17.0); Lymphocytes # (A) 0.83 X 10*3/uL (0.90-5.00); Lymphocytes % (A) 11.2 %; MCHC 32.6 d/dL (32.0-37.0); MCV 94.8 FL (80.0-97.0); Mean Platelet Volume 10.3 FL (9.5-12.2); Monocytes % (A) 9.4 %; NRBC Per 100 WBC 0 X 10*3/uL (0.00-0.01); Neutrophils # (A) 5.64 X 10*3/uL (1.80-7.70); Platelet Count 186 X 10*3/uL (140-440); RBC 4.62 X 10*6/uL (4.40-5.60); WBC 7.42 X 10*3/uL (4.50-10.00)
[2023-04-28 09:56] LABS: Blood Urea Nitrogen 20.7 mg/dL (9.0-27.0); Chloride 102 mmol/L (96-109); Potassium 3.5 mmol/L (3.5-5.5); Sodium 142 mmol/L (135-145)
== END | disposition home or self-care (01) ==
LOC: LABWHC1 15:04
PROVIDERS: ATTEND Internal Medicine Interventional Cardiology
DX: Z01.812 Encounter for preprocedural laboratory examination (principal); R94.39 Abnormal result of other cardiovascular function study
CPT/HCPCS: 36415; 80051; 82565; 84520; 85025

== ENCOUNTER 2023-05-02 07:12 | Day surgery (SDC) | payer MEDICARE ==
[~2023-05-02 07:12] MED LIST changes: -ACETAMINOPHEN TAB 500 MG TAB PO ONE; +ALPRAZolam 0.25 MG TAB PO PRN; +ALPRAZolam 0.5 MG TAB PO PRN; +ASPIRIN 325 MG TAB PO ONE; +ATORVASTATIN 80 MG TAB PO ONE; +HEPARIN SODIUM,PORCINE (1 ML) 2,500 UNIT in SODIUM CHLORIDE 0.9% 250 ML IRRIGATION PRN; +HEPARIN SODIUM,PORCINE 10,000 UNIT in SODIUM CHLORIDE 0.9% 1,000 ML IRRIGATION PRN; -HEPARIN SODIUM,PORCINE 5,000 UNIT/ML 1 ML VIAL SQ ONE; +NITROGLYCERIN SL TABS 0.4 MG TAB SUBLINGUAL PRN; -Pre Op ABX Message 1 EACH MISC MISCELLANE ONE; +SODIUM CHLORIDE 0.9% 1,000 ML in EMPTY BAG 1 BAG IV SCH
[2023-05-02 07:37] VITALS: TEMP 97.9
[2023-05-02] MEDS ORDERED: SODIUM CHLORIDE 0.9% 1,000 ML IV ONE (07:43)
[2023-05-02] MEDS ORDERED: fentaNYL (PF) 50 MCG/ML 2 ML AMP ONE (10:48)
[2023-05-02] MEDS ORDERED: HEPARIN SODIUM 1,000 UN/ML (10ML VL) ONE (10:48)
[2023-05-02] MEDS ORDERED: fentaNYL (PF) 50 MCG/ML 2 ML AMP IVP ONE (11:07)
[2023-05-02] MEDS ORDERED: LIDOCAINE 2% (PF) 20 MG/ML 5 ML VIAL SQ ONE (11:13)
[2023-05-02] MEDS ORDERED: VERAPAMIL SYRINGE (5 MG/10 ML) INTRAARTER ONE (11:15)
[2023-05-02] MEDS ORDERED: HEPARIN SODIUM 1,000 UN/ML (10ML VL) IV ONE (11:17)
[2023-05-02] MEDS ORDERED: IOPAMIDOL-370 100ML BTL INJ ONE (11:26)
[2023-05-02 11:48] VITALS: RESP 16
[2023-05-02] MEDS ORDERED: RX INFO: IV CONTRAST WAS GIVEN 1 EACH MISC MISCELLANE PRN (12:13)
[2023-05-02] MEDS ORDERED: SODIUM CHLORIDE 0.9% 1,000 ML IV SCH (12:15)
--- NOTE | 2023-05-02 13:37 | P.CARDCATH ---
Date of Procedure: 05/02/23 Description of Procedure: Cardiac Catheterization: The patient is a 77-year-old male with a known history of hypertension, hyperlipidemia and paroxysmal atrial fibrillation who has been complaining of progressive dyspnea on exertion, he had an abnormal MPI. Recommendations were made regarding cardiac catheterization, the risks and the complications were discussed with the patient who is in full understanding and agreement. Procedure Description: Patient was brought to civil laboratory technician in fasting semi-sedated state after receiving Fentanyl and Benadryl achieiving moderate conscious sedated state. Using Xylocaine Anesthesia and Seldinger technique, a 6-Faroese sheath was introduced in the right radial artery . Subsequently, selective coronary angiography was performed using a 5-Faroese 3.5 bend Boo catheter. Multiple views of the coronary artery including hemiaxial views were obtained. The 5-Faroese pigtail catheter was used to cross the aortic valve and LVEDP was calculated. Following that, catheter and sheath were removed. Hemostasis was obtained with deployment of TR band . There was no immediate complication. Patient was returned to room in stable condition. Of note, the patient received a total of 4500 units of intravenous heparin as well as intra-arterial verapamil. Findings: Left main: This is a short sized vessel, a large in caliber, bifurcating into LAD and left circumflex, it has no obstructive disease LAD: This is a large size vessel, reaching to the apex, giving rise to a m oderately sized diagonal branch, the mid LAD has 20% plaque the rest of the vessel has no high-grade stenosis Left circumflex: This is a non-dominant vessel, large in caliber, giving rise to a large obtuse marginal branch that has no obstructive disease RCA: This is a large dominant vessel home bifurcating into PDA and PLV, the RCA has no obstructive disease Left Ventriculogram: Not performed Hemodynamics: There was no gradient across the aortic valve, LVEDP was 14-16 mmHg Conclusion: 1. Mild disease in the mid LAD 2. Right dominance 3. Normal LVEDP 4. No evidence of obstructive disease in the RCA and left circumflex Recommendations: The patient will continue on present therapy with aggressive coronary risks modifications. The findings and the recommendations were discussed with the patient and the family and they were in full understanding and agreement. Duration of sedation is 16 minutes.
[2023-05-02 15:14] VITALS: BP 146/74; PULSE 60
[2023-05-02] MEDS ORDERED: METOPROLOL TARTRATE 25 MG TAB PO SCH (21:00)
[2023-05-02] MEDS ORDERED: ATORVASTATIN 20 MG TAB PO SCH (21:00)
[2023-05-02] MEDS ORDERED: amLODIPine 5 MG TAB PO SCH (21:00)
[2023-05-02] MEDS ORDERED: FLECAINIDE 50 MG TAB PO SCH (21:00)
[2023-05-03] MEDS ORDERED: hydroCHLOROthiazide 25 MG TAB PO SCH (09:00)
[2023-05-03] MEDS ORDERED: POTASSIUM CHLORIDE ER 10 MEQ TAB.ER.PRT PO SCH (09:00)
== END 2023-05-02 15:16 | disposition home or self-care (01) ==
LOC: CATHCVL 07:12
PROVIDERS: ATTEND Internal Medicine Interventional Cardiology
DX: I25.10 Atherosclerotic heart disease of native coronary artery without angina pectoris (principal); I48.0 Paroxysmal atrial fibrillation; I10 Essential (primary) hypertension; I73.9 Peripheral vascular disease, unspecified; F17.210 Nicotine dependence, cigarettes, uncomplicated; E78.2 Mixed hyperlipidemia; Z79.01 Long term (current) use of anticoagulants; Z79.899 Other long term (current) drug therapy
CPT/HCPCS: 93458; C1769 ×2; C1894; J3010; J1644; Q9967; J2001

== ENCOUNTER → 2024-11-28 | Outpatient (CLI) | payer MEDICARE ==
[2024-11-28 15:39] LABS: NT-Pro-B-Type Natriuretic Pept 505 pg/mL (0-450)
[2024-11-28 16:03] LABS: ALT 39 U/L (10-49); AST 30 U/L (14-35); Albumin 3.8 g/dL (3.8-4.9); Albumin/Globulin Ratio 1.73 Ratio (1.60-3.17); Alkaline Phosphatase 72 U/L (41-126); BUN/Creat Ratio 11.46 Ratio (12.00-20.00); Blood Urea Nitrogen 14.9 mg/dL (9.0-27.0); Calcium 10.3 mg/dL (8.7-10.3); Chloride 104 mmol/L (96-109); Chol/HDL Ratio 3.31 Ratio; Globulin 2.2 g/dL (1.6-3.3); Glucose 120 mg/dL (70-110); LDL Cholesterol,Calculated 88.5 mg/dL (0.0-131.0); Potassium 3.8 mmol/L (3.5-5.5); Sodium 144 mmol/L (135-145); Total Bilirubin 0.5 mg/dL (0.3-1.2)
== END | disposition home or self-care (01) ==
LOC: LABWHC1 09:05
PROVIDERS: ATTEND Internal Medicine Interventional Cardiology
DX: E78.2 Mixed hyperlipidemia (principal); R06.09 Other forms of dyspnea
CPT/HCPCS: 36415; 80053; 80061; 83880

== ENCOUNTER 2024-12-12 15:30 | Emergency (ER) | payer MEDICARE ==
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
--- NOTE | 2024-12-12 17:27 | XR ---
EXAMINATION TYPE: XR elbow complete RT DATE OF EXAM: 12/12/2024 5:07 PM COMPARISON: None. CLINICAL INDICATION: Male, 79 years old with history of fall, non-healing wound, pain TECHNIQUE: 3 view(s) obtained. FINDINGS: No acute fractures are identified. No radiopaque foreign body is identified. Radius aligns normally with the humerus. Anterior fat pad is normal. No elevation posterior fat pad i s evident. Posterior soft tissues are prominent. Follow-up can be performed as clinically indicated. IMPRESSION: 1. No acute osseous abnormality right elbow. 2. Soft tissue prominence over the posterior olecranon. [facility], , 12/12/2024 5:25 PM
--- NOTE | 2024-12-12 17:28 | XR ---
EXAMINATION TYPE: XR lumbar spine 2 or 3V DATE OF EXAM: 12/12/2024 5:07 PM COMPARISON: None. CLINICAL INDICATION: Male, 79 years old with history of fall, ecchymosis, pain, pain TECHNIQUE: 3 view(s) obtained. FINDINGS: There are 5 lumbar-type vertebral bodies. Pedicles are intact. There is narrowing of disc height thro ughout the lumbar spine. Vertebral body heights are preserved. Spondylosis is present. There is a 1.5 cm calcification adjacent to the left inferior L4 left may be a left ureteral stone. IMPRESSION: 1. Degenerative disc changes. 2. No acute osseous abnormality radiographically apparent. 3. Correlate for left ureteral stone [facility], , 12/12/2024 5:26 PM
[2024-12-12] MEDS: DIPH,PERTUS(ACELL)TETVAC-LF 0.5 ML VIAL IM ONE (18:03)
[2024-12-12 18:08] LABS: Basophils # (A) 0.07 10*3/uL (0.00-0.10); Basophils % (A) 0.7 %; Eosinophils # (A) 0.16 10*3/uL (0.04-0.35); Eosinophils % (A) 1.7 %; HCT 39.4 % (39.6-50.0); HGB 13.7 g/dL (13.0-17.0); Lymphocytes # (A) 0.85 10*3/uL (0.90-5.00); MCH 32.2 pg (27.0-32.0); MCHC 34.8 g/dL (32.0-37.0); MCV 92.7 fL (80.0-97.0); Mean Platelet Volume 9.2 fL (9.5-12.2); Monocytes # (A) 0.92 10*3/uL (0.20-1.00); Monocytes % (A) 9.7 %; Neutrophils # (A) 7.36 10*3/uL (1.80-7.70); Neutrophils % (A) 77.7 %; Platelet Count 240 10*3/uL (140-440); RBC 4.25 10*6/uL (4.40-5.60); RDW 12.9 % (11.5-14.5); WBC 9.47 10*3/uL (4.50-10.00)
[2024-12-12] MEDS: HYDROcodone/APAP 5-325MG 1 EACH TAB PO STA (18:17)
--- NOTE | 2024-12-12 18:29 | CT ---
EXAMINATION TYPE: CT brain natanael wo con DATE OF EXAM: 12/12/2024 5:50 PM COMPARISON: 12/29/2016 CLINICAL INDICATION: Male, 79 years old with history of fall, on thinners, Fell down 4-5 steps x10day s ago. On thinners., pain TECHNIQUE: CT of the brain is performed utilizing 3 mm thick sections through the posterior fossa and 3 mm thick sections through the remaining calvarium. Study is performed within 24 hours of arrival to the hospital. Contrast used: mL of , (none if empty) CT DLP: 1435 mGycm, Automated exposure control for dose reduction was used. FINDINGS: No abnormal hyperdensity is present to suggest an acute intracranial hemorrhage. No mass lesion is evident. No acute infarcts are evident. Periventricular white matter hypodensity is present, likely on the ba sis of chronic white matter ischemic changes. This is progressive from the comparison of 2016. Ventricles and sulci are prominent for the patient age. Paranasal sinuses and mastoid air cells within the [id number] are clear. IMPRESSIONS: 1. No acute intracranial process. Follow-up MRI can be performed as clinically indicated. 2. Chronic appearing periventricular white matter ischemic type changes with atrophy. CT cervical spine. COMPARISON: None TECHNIQUE: CT of the cervical spine is performed in the axial plane at 2 mm thick sections. Reconstr ucted images in the coronal, and sagittal plane are reviewed on the computer. FINDINGS: No acute fractures are evident. Vertebral body alignment is normal. There is narrowing of disc height throughout the cervical spine greatest at C4-5 C5-6 and C6-7. Minim al grade 1 spondylolisthesis of C3 anterior and C4 is present. Vertebral body heights are preserved. No spinal canal stenosis is evident. Foraminal narrowing is present C4-5 C5-6 and C6-7. IMPRESSION: 1. Degenerative disc changes and foraminal stenosis discussed above. 2. No acute osseous abnormality radiographically apparent. [facility], , 12/12/2024 6:26 PM
[2024-12-12 18:30] LABS: ALT 35 U/L (4-49); African American GFR (CKD) 70 (>60 ml/min/1.73 sqM); Albumin 3.9 g/dL (3.5-5.0); Anion Gap 7 mmol/L; Blood Urea Nitrogen 24 mg/dL (9-20); C Reactive Protein <0.5 mg/dL (<1.0); Calcium 10.3 mg/dL (8.4-10.2); Carbon Dioxide 30 mmol/L (22-30); Chloride 100 mmol/L (98-107); Glucose 111 mg/dL (74-99); Non-African American GFR(CKD) 60 (>60 ml/min/1.73 sqM); Sodium 137 mmol/L (137-145); Total Protein 6.6 g/dL (6.3-8.2)
[2024-12-12 18:33] LABS: AST 41 U/L (17-59); Alkaline Phosphatase 60 U/L (38-126); Potassium 3.8 mmol/L (3.5-5.1)
[2024-12-12] MEDS: BACITRACIN/POLYMYX 500-10,000 UNIT/GM OINT 14 GM TUBE TOPICAL STA (19:40)
[2024-12-12 19:59] VITALS: BP 145/69; PULSE 53; RESP 16; TEMP 98.1
== END 2024-12-12 20:27 | disposition home or self-care (01) ==
LOC: EC 15:30
DX: S51.811A Laceration without foreign body of right forearm, initial encounter (principal); I48.91 Unspecified atrial fibrillation; Z23 Encounter for immunization; Z87.891 Personal history of nicotine dependence; Z88.0 Allergy status to penicillin; Z88.1 Allergy status to other antibiotic agents; Z88.2 Allergy status to sulfonamides; W01.0XXA Fall on same level from slipping, tripping and stumbling without subsequent striking against object, initial encounter; Y93.01 Activity, walking, marching and hiking
CPT/HCPCS: 36415; 70450; 72100; 72125; 80053; 83605; 85025; 86140; 90471; 90715; 99284

== ENCOUNTER 2025-02-26 06:58 | Inpatient (IN) | payer MEDICARE ==
[2025-02-26 07:23] LABS: Basophils # (A) 0.04 10*3/uL (0.00-0.10); Basophils % (A) 0.4 %; Eosinophils # (A) 0.04 10*3/uL (0.04-0.35); Eosinophils % (A) 0.4 %; HCT 42.7 % (39.6-50.0); HGB 14.6 g/dL (13.0-17.0); Lymphocytes # (A) 0.68 10*3/uL (0.90-5.00); Lymphocytes % (A) 6.3 %; MCH 32.2 pg (27.0-32.0); MCHC 34.2 g/dL (32.0-37.0); MCV 94.3 fL (80.0-97.0); Monocytes # (A) 0.84 10*3/uL (0.20-1.00); Monocytes % (A) 7.8 %; Neutrophils # (A) 9.03 10*3/uL (1.80-7.70); Neutrophils % (A) 83.9 %; Platelet Count 165 10*3/uL (140-440); RBC 4.53 10*6/uL (4.40-5.60); RDW 12.5 % (11.5-14.5); WBC 10.76 10*3/uL (4.50-10.00)
[2025-02-26] MEDS: HYDROmorphone 0.5 MG/0.5 ML SYRINGE IVP STA ×3 (07:32→09:14)
[2025-02-26 07:35] LABS: ALT 41 U/L (4-49); AST 37 U/L (17-59); African American GFR (CKD) 68 (>60 ml/min/1.73 sqM); Albumin 4.3 g/dL (3.5-5.0); Alkaline Phosphatase 76 U/L (38-126); Anion Gap 8 mmol/L; Blood Urea Nitrogen 22 mg/dL (9-20); Calcium 10.6 mg/dL (8.4-10.2); Carbon Dioxide 28 mmol/L (22-30); Chloride 102 mmol/L (98-107); Glucose 146 mg/dL (74-99); Non-African American GFR(CKD) 59 (>60 ml/min/1.73 sqM); Potassium 3.5 mmol/L (3.5-5.1); Sodium 138 mmol/L (137-145); Total Protein 6.8 g/dL (6.3-8.2)
[2025-02-26 07:36] LABS: INR 1.0 (<1.2); Partial Thromboplastin Time 22.0 sec (22.0-30.0); Prothrombin Time 10.8 sec (10.0-12.5)
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
[2025-02-26 07:53] LABS: Bilirubin,Urine Negative (Negative); Blood,Urine Negative (Negative); Color,Urine Colorless; Glucose,Urine (UA) Negative (Negative); Ketones,Urine Negative (Negative); Leukocyte Esterase,Urine Negative (Negative); Nitrite,Urine Negative (Negative); PH, Urine 7.0 (5.0-8.0); Protein,Urine Trace (Negative); Specific Gravity,Urine 1.014 (1.001-1.035); Urobilinogen,Urine <2.0 mg/dL (<2.0)
--- NOTE | 2025-02-26 08:09 | XR ---
EXAMINATION TYPE: XR chest 1V DATE OF EXAM: 02/26/2025 8:02 AM COMPARISON: None. CLINICAL INDICATION: Male, 79 years old with history of pain, TECHNIQUE: XR chest 1V view(s) obtained. FINDINGS: The heart size is normal. Pacemaker overlies left chest The pulmonary vasculature is normal. The lungs are clear. IMPRESSION: 1. No acute pulmonary process. [facility], , 02/26/2025 8:07 AM
--- NOTE | 2025-02-26 08:10 | XR ---
EXAMINATION TYPE: XR Hip RT and AP Pelvis DATE OF EXAM: 02/26/2025 8:02 AM COMPARISON: None. CLINICAL INDICATION: Male, 79 years old with history of pain, pain TECHNIQUE: 2 view(s) obtained. Exam is supplemented with AP pelvis FINDINGS: There is a right femoral neck fracture. Femoral head articulates with the acetabulum. Left femoral he ad articulates with the acetabulum. Joint spaces are preserved. Symphysis pubis and sacroiliac joints are normal. IMPRESSION: 1. Right femoral neck fracture [facility], , 02/26/2025 8:08 AM
[2025-02-26] MEDS ORDERED: NALOXONE 0.4 MG/ML 1 ML VIAL IV PRN (08:21)
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
[2025-02-26] MEDS: HYDROmorphone 1 MG/ML 1 ML SYRINGE IVP PRN (11:32)
[2025-02-26] MEDS: ONDANSETRON 4 MG/2 ML VIAL IVP PRN (11:39)
[2025-02-26] MEDS: POTASSIUM CHLORIDE ER 20 MEQ TAB.ER PO STA (13:04)
[2025-02-26] MEDS: METOPROLOL TARTRATE 25 MG TAB PO SCH (13:05)
[2025-02-26] MEDS: FLECAINIDE 50 MG TAB PO SCH (13:05)
[2025-02-26] MEDS: PANTOPRAZOLE 40 MG/10 ML VIAL IVP SCH (13:07)
[2025-02-26] MEDS: HYDROmorphone 0.5 MG/0.5 ML SYRINGE IVP PRN (13:21)
[2025-02-26] MEDS ORDERED: guaiFENesin-DM 100-10MG/5ML 10 ML CUP PO PRN (21:01)
[2025-02-26] MEDS: traMADol 50 MG TAB PO PRN (21:08)
[2025-02-26] MEDS: ATORVASTATIN 20 MG TAB PO SCH (21:08)
[2025-02-26] MEDS: guaiFENesin-DM 100-10MG/5ML 10 ML CUP PO PRN (21:09)
[2025-02-27] MEDS: IPRATROPIUM-ALBUTEROL 3 ML NEB INHALATION PRN (01:40)
[2025-02-27] MEDS ORDERED: HYDROcodone/APAP 5-325MG 1 EACH TAB PO PRN (01:46)
[2025-02-27] MEDS: HYDROcodone/APAP 10-325MG 1 EACH TAB PO PRN (02:36)
[2025-02-27] MEDS: PROCHLORPERAZINE 5 MG TAB PO PRN (03:17)
--- NOTE | 2025-02-27 04:25 | XR ---
EXAM: XR Abdomen, 1 View CLINICAL HISTORY: ITS.REASON XR Reason: Abd distended and firm TECHNIQUE: Frontal supine view of the abdomen/pelvis. COMPARISON: No relevant prior studies available. IMPRESSION: Distended stomach. Prominent air and stool filled large bowel loops.
--- NOTE | 2025-02-27 04:26 | XR ---
EXAM: XR Chest, 2 Views CLINICAL HISTORY: ITS.REASON XR Reason: Possible aspiration TECHNIQUE: Frontal and lateral views of the chest. COMPARISON: No relevant prior studies available. IMPRESSION: Cardiomegaly. Mild bibasilar opacities
--- NOTE | 2025-02-27 08:26 | XR ---
EXAMINATION TYPE: XR chest 1V DATE OF EXAM: 02/27/2025 8:12 AM COMPARISON: 02/27/2025 CLINICAL INDICATION: Male, 79 years old with history of NG readjustment post placement, TECHNIQUE: XR chest 1V view(s) obtained. FINDINGS: The heart size is normal. The pulmonary vasculature is normal. The lungs are clear. Nasogastric tube tip is within the epigastric region. Pacemaker overlies left chest. Safety pin is ov er the right chest IMPRESSION: 1. No acute pulmonary process. 2. Nasogastric tube tip within the epigastric region. [facility], , 02/27/2025 8:23 AM
--- NOTE | 2025-02-27 08:32 | XR ---
EXAMINATION TYPE: XR chest 1V DATE OF EXAM: 02/27/2025 8:11 AM COMPARISON: 02/28/2020 CLINICAL INDICATION: Male, 79 years old with history of NG tube placement, previous abnormal chest TECHNIQUE: XR chest 1V view(s) obtained. FINDINGS: The heart size is normal. The pulmonary vasculature is normal. There may be some mild left lower lobe infiltrate. This appears improved from comparison Nasogastric tube is present transverse fractures to the right upper quadrant of the abdomen IMPRESSION: 1. Mild left lower lobe infiltrate. Continued follow-up recommended. [facility], , 02/27/2025 8:30 AM
--- NOTE | 2025-02-27 08:38 | P.PN ---
Subjective Progress Note Date: 02/27/25 Seen this morning at bedside. He is complaining of right hip and groin pain. He recently had an NG tube placed and feels somewhat better. Objective - Vital Signs Vital signs: Vital Signs Temp 98.5 F 02/27/25 07:12 Pulse 76 02/27/25 07:12 Resp 18 02/27/25 07:12 BP 104/66 02/27/25 07:12 Pulse Ox 90 L 02/27/25 07:12 FiO2 Intake & Output 02/26/25 02/27/25 02/27/25 18:59 06:59 18:59 Weight 83.915 kg Other: Voiding Method Urinal # Voids 0 1 - Exam The patient is resting comfortably in bed. An NG tube is in place. His abdomen is moderately distended. A focused exam of the right lower extremity shows the right leg is shortened and externally rotated. There are no scars or lesions over the anterior aspect of the hip. There are several superficial abrasions over the anterior aspect of the bhatt. His thigh and calf are soft. He can actively plantarflex and dorsiflex his ankle and his toes. - Labs CBC & Chem 7: 02/26/25 07:15 02/26/25 07:15 Assessment and Plan Assessment: Displaced right subcapital femoral neck fracture Partial small bowel obstruction Lumbar degenerative disc disease scheduled for a lumbar spine surgery at an outside facility Plan: I met with the patient this morning, reviewed his imaging and discussed treatment options. My recommendation was to proceed with a partial versus total hip replacement. We discussed the procedure at length. We will plan on surgery later today if he is cleared by internal medicine, cardiology, and general surgery. In the interim he is to remain on bedrest with strict nonweightbearing of the right lower extremity.
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
[2025-02-27] MEDS: AZITHROMYCIN 500 MG in SODIUM CHLORIDE 0.9% 250 ML IVPB STA (10:11)
[2025-02-27] MEDS ORDERED: ECONAZOLE NITRATE TOPICAL SCH (11:45)
[2025-02-27] MEDS: CLOTRIMAZOLE 1% CREAM 30 GM TUBE TOPICAL SCH (11:53)
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
--- NOTE | 2025-02-27 18:48 | CT ---
EXAMINATION TYPE: CT abdomen pelvis wo con DATE OF EXAM: 02/27/2025 11:19 AM COMPARISON: Plain film CLINICAL INDICATION: Male, 79 years old with history of abdominal distention, fall,; Abdominal disten tion. TECHNIQUE: Axial CT abdomen pelvis wo con;Sagittal and coronal reformats were created on a separate workstation. Contrast used: mL of , (none if empty) Oral contrast used: without Oral Contrast (none if empty) CT DLP: 675.7 mGycm, Automated exposure control for dose reduction was used. FINDINGS: LOWER CHEST: Cardiac conduction leads present. Bilateral patchy airspace opacities. ABDOMEN LIVER: Unremarkable GALLBLADDER AND BILE DUCTS: Unremarkable. PANCREAS: Unremarkable. SPLEEN: Unremarkable. ADRENAL GLANDS: Unremarkable. KIDNEYS AND URETERS: No evidence of hydronephrosis or obstructing renal calculus. The ureters are unr emarkable. PELVIS BLADDER: No evidence for wall thickening or mass given limitations of exam. REPRODUCTIVE: Prostate is enlarged in size measuring 4.9 cm in transverse dimension. ABDOMEN & PELVIS STOMACH AND BOWEL: No evidence of bowel obstruction. Nasogastric tube terminating in the stomach. Sca ttered colonic diverticula present. PERITONEUM/RETROPERITONEUM: No evidence of pneumoperitoneum or free fluid. VASCULATURE: No evidence of aortic aneurysm. MUSCULOSKELETAL: Acute fracture of the right proximal femoral neck mid femoral neck fracture with ramona us deformity. Degeneration changes throughout the spine joint space and osteophyte formation. The rem ainder of the visualized pelvis appears intact. LYMPH NODES: No gross evidence for lymphadenopathy. SOFT TISSUE/ABDOMINAL WALL: Bilateral fat-containing inguinal hernias. IMPRESSION: 1. Acute Proximal right femoral neck fracture with varus deformity. 2. Bilateral lower lobe airspace disease correlate for pneumonia/aspiration. 3. Nasogastric tube in satisfactory position. 4. Scattered colonic diverticula. 5. Fat-containing inguinal hernias bilaterally. [facility], , 02/27/2025 6:46 PM
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
[2025-02-28] MEDS ORDERED: ROPIVACAINE/EPI/CLONIDINE/KET 50 ML SYRINGE MISCELLANE PRN (05:00)
--- NOTE | 2025-02-28 07:37 | XR ---
EXAMINATION TYPE: XR chest 1V portable DATE OF EXAM: 02/28/2025 7:00 AM COMPARISON: Chest radiograph from one day prior. CLINICAL INDICATION: Male, 79 years old with history of possibile aspiration; [facility] TECHNIQUE: XR chest 1V portable Frontal view of the chest. FINDINGS: Lungs/Pleura: There is no evidence of pleural effusion, focal consolidation, or pneumothorax. Pulmonary vascularity: Unremarkable. Heart/mediastinum: Cardiomediastinal silhouette is unremarkable. Three lead cardiac conduction device overlying the left hemithorax with lead tips projecting over the right ventricle, right atrium and c oronary sinus. Musculoskeletal: No acute osseous pathology. Other findings: None Lines/Tubes: Nasogastric tube with side-port projecting over the distal esophagus. IMPRESSION: Stable exam. Nasogastric tube terminating in the distal esophagus. Consider advancement of at least 10 cm for opti mal placement. [facility], , 02/28/2025 7:35 AM
[2025-02-28] MEDS ORDERED: NEOSTIGMINE 1 MG/ML 10 ML VIAL ONE (08:58)
[2025-02-28] MEDS ORDERED: GLYCOPYRROLATE 0.2 MG/ML 2 ML VIAL ONE (08:58)
[2025-02-28] MEDS ORDERED: LIDOCAINE 1% INJ 10MG/ML (20 ML MDV) ONE (08:58)
[2025-02-28] MEDS ORDERED: SUCCINYLCHOLINE CHLORIDE 200 MG/10 ML VIAL IV ONE (08:58)
[2025-02-28] MEDS: SODIUM CHLORIDE 0.9% 1,000 ML IV ONE (08:58)
[2025-02-28] MEDS ORDERED: TRANEXAMIC 1,000 MG/100ML-NACL PREMIX BAG ONE (08:58)
[2025-02-28] MEDS ORDERED: fentaNYL (PF) 50 MCG/ML 2 ML AMP ONE (08:58)
[2025-02-28] MEDS ORDERED: PROPOFOL 10 MG/ML 20 ML VIAL IV ONE (08:58)
[2025-02-28] MEDS ORDERED: ROCURONIUM 10 MG/ML (5 ML VIAL) IV ONE (08:58)
[2025-02-28] MEDS ORDERED: MIDAZOLAM 2 MG/2 ML VIAL ONE (08:58)
[2025-02-28] MEDS ORDERED: HYDROmorphone 0.5 MG/0.5 ML SYRINGE IVP PRN ×3 (09:02)
[2025-02-28] MEDS ORDERED: MAGNESIUM HYDROXIDE 2,400 MG/30 ML CUP PO PRN (09:02)
[2025-02-28] MEDS ORDERED: NALOXONE 0.4 MG/ML 1 ML VIAL IV PRN (09:02)
[2025-02-28] MEDS: SODIUM CHLORIDE 0.9% 100 ML with ceFAZolin 2,000 MG IV ONE (09:20)
[2025-02-28] MEDS: EPINEPHrine 2 MG in SODIUM CHLORIDE 0.9% 200 ML IV ONE (09:43)
--- NOTE | 2025-02-28 10:38 | P.OP ---
Date of Procedure: 02/28/25 Preoperative Diagnosis: 1. Displaced right subcapital femoral neck fracture 2. Degenerative lumbar stenosis scheduled for surgery at an outside facility 3. Preoperative nausea and vomiting requiring NG tube 4. Multiple recent falls 5. History of multiple wounds requiring antibiotics and treatment by a nuisance wildlife specialist 6. Severe osteoporosis 7. Atrial fibrillation on Eliquis 8. History of esophageal cancer 9. Stroke Postoperative Diagnosis: Same Procedure(s) Performed: Right direct anterior hip hemiarthroplasty Implants: [place] Accolade C size #5, 127 degrees, 51 mm outer diameter head, 28 mm inner diameter bipolar head Anesthesia: GETA Surgeon: Jimenez Maldonado Auxiliary Equipment Operator #1: Ashleigh Berman Estimated Blood Loss (ml): 100 IV fluids (ml): 800 Pathology: none sent Condition: stable Disposition: PACU Indications for Procedure: The patient is a very pleasant 79-year-old male who was admitted under my care on with a displaced femoral neck fracture. The patient has b een falling recently due to lumbar degenerative spine disease. He was actually scheduled for surgery this week at [facility]. We tentatively planned for surgery on Sunday but due to intractable nausea and vomiting with concern for small bowel obstruction surgery was delayed by general surgery until a CT scan of the abdomen could be obtained. Ultimately the patient was cleared for surgery this morning. I met with the patient and his family to discuss his injury and treatment options. He has a displaced femoral neck fracture. The family reports that he has been seeing a nuisance wildlife specialist for open wounds in his legs, feet, and hands. They seem to think he has been on IV antibiotics for this. He continues to have cellulitis in his right leg with a skin tear from a prior fall. Given his age of over 78, multiple recent falls, and history of infection with open wounds my recommendation was to treat his displaced femoral neck fracture with a cemented hemiarthroplasty. I met with the patient and their family to discuss treatment options. The patient has a displaced femoral neck fracture and based on their age, activity level, and medical comorbidities I recommended a hip hemiarthroplasty to facilitate early mobilization. My recommendation was to perform the hemiarthroplasty through a direct anterior approach to help lower the risk of dislocation and improve postoperative recovery and use cemented fixation of the femoral component to reduce the risk of fracture and postoperative thigh pain. We discussed the potential risks and complications of a hemiarthroplasty for displaced femoral neck fracture at length. Risks discussed include are certainly not limited to risks from anesthesia, superficial infection requiring local wound care and possibly surgical debridement, deep periprosthetic joint infection and the treatment for this, damage to local blood vessels or nerves particularly the lateral femoral cutaneous nerve, intraoperative fracture, postoperative periprosthetic fracture, leg length discrepancy, hip dislocation, aseptic loosening, groin pain, thigh pain, progression of arthritis requiring conversion to total hip arthroplasty, complications related to cementing the component, an inability to regain preinjury level of function, DVT, PE, acute coronary event, stroke, pneumonia, urinary tract infection, failure to thrive, and possibly . The patient and their family understand that while these are the most common complications other less common complications are possible. They provided their verbal and written consent to go forward with surgery. Operative Findings: Displaced subcapital femoral neck fracture with large hemarthrosis. The patient had very poor bone quality consistent with osteopenia so I elected to use cemented femoral fixation. Description of Procedure: The patient was identified in the preoperative holding area and the correct hip was marked with my initials. I reviewed the procedure and consent with the patient. All of their questions were answered. The patient was then brought back into the operating room by anesthesia. While on the [facility] anesthesia was administered by the anesthesia team. Preoperative antibiotics and tranexamic acid were also given. After the patient was under anesthesia I examined their ankles to determine their preoperative leg length discrepancy. The skin over the anterior aspect of the hip was shaved to remove hair over the site of planned incision. Both feet and ankles were padded with webril and boots for the [place] were applied. The patient was then carefully transferred onto the [place] table. A perineal post was immediately placed. The arms were placed on arm holders and were well-padded. Both boots were secured to the spars on the [place] table. The patient was positioned so that the pelvis was centered over the post. Nonsterile drapes were applied. A timeout was performed identifying the correct patient, operative extremity, and procedure. At this point fluoroscopy was brought in to take preoperative images of the pelvis and operative hip. A metallic bar was used to create a bi-ischial line for use as a reference to leg length adjustments during the procedure. Global offset was also measured on both the operative and nonoperative leg. Fluoroscopy was then brought out and a pre-scrub using a chlorhexidine scrub brush was performed. The operative limb was then prepped and draped in the standard sterile fashion. An anterior longitudinal incision was made lateral and distal to the ASIS. The skin and subcutaneous tissues were incised sharply. The underlying tensor fascia was identified and incised in its midportion. The fascia was dissected free from the underlying muscle and the muscle belly was retracted. A blunt tipped cobra retractor was placed over the superior neck under the muscle fibers of the gluteus minimus. The deep enveloping fascia of the tensor was incised. The anterior leash of vessels were then identified and cauterized. The fascia between the rectus and the capsule was then incised and the pre-capsular fat was excised. A second Cobra was placed inferior to the neck. The interval between the rectus and iliocapsularis and the hip capsule was developed and a retractor was placed carefully over the anterior rim of the acetabulum. A T-shaped anterior capsulotomy was performed. A hemarthrosis consistent with a femoral neck fracture was identified. The superior capsular leaflet was left in place in the inferior capsular flap was excised. The Cobra retractors were placed intracapsularly. A displaced femoral neck fracture was then identified. We then made a femoral neck osteotomy according to preoperative and intraoperative templating and confirmed the level of the osteotomy using fluoroscopic imaging. The femoral head was removed, passed off to the back table, and sized. The superior capsular flap was excised. On inspection of the acetabulum there were minimal degenerative changes with intact cartilage. Attention was then turned to the femur. The remnant dorsal lateral capsule was excised. The short external rotators were visible and protected. A bone hook was used to confirm appropriate translation of the trochanter away from the acetabulum. The leg was then extended and adducted and the bone hook was used to elevate the femur for broaching. A box osteotome and blunt tipped canal sound was then utilized to gain access to the femoral canal. We then sequentially broached the femur in appropriate anteversion until torsional stability was achieved and the implant was felt to have reached the appropriate size to allow trialing. The neck cut was brought flush to the trial broach with a calcar planar. A trial neck and head were then placed onto the broach and the hip was atraumatically reduced under direct visualization. External rotation to 90 was performed to assess stability. Fluoroscopy was brought in. An AP and lateral fluoroscopic image of the proximal femur was obtained to assess position and fill of the trial broach. An AP of the pelvis was then obtained and matched to the preoperative image taken. A bi-ischial bar was then placed and measurements were taken to assess changes in length and offset. The hip was then carefully dislocated, the proximal femur was exposed, and the trial implants were removed. The proximal femur was then prepared for cementing. The canal was thoroughly irrigated with pulsatile lavage to remove blood and marrow contents. A cement restrictor was placed to a depth just distal to the tip of the final implant. Epinephrine-soaked gauze was then packed into the proximal femur. 2 bags of cement with antibiotics were then mixed using a centrifuge and placed into a cement gun. Anesthesia was notified that cementing was about to commence to make sure the patient was appropriately ventilated and hydrated. Once the cement had reached appropriate consistency, the cement gun was used to fill the canal in a retrograde fashion starting at the restrictor. Cement was then pressurized into the canal with a blue tipped yoga coordinator. The stem was then carefully introduced into the cement taking care to guide the implant into appropriate version. The stem was held in position until the cement had fully set. All extra cement was removed while the cement was hardening. The trunnion was cleansed and the final head was tapped into place to engage the Siddiqi taper. The acetabulum was irrigated and visualized to be free of debris. The hip was carefully reduced. Stability was checked clinically with external rotation to 90 and there was no evidence of instability. Final fluoroscopic images were taken. The wound was then thoroughly irrigated with Irrisept. 3 L of sterile saline was irrigated through the wound using pulsatile lavage. Local anesthetic cocktail was injected into the soft tissues around the surgical field. The wound was then closed in layers. A sterile dressing was placed over the surgical incision. The drapes were taken down and the patient was carefully transferred off of the [place] table. Following removal of the boots the leg lengths felt acceptable. The patient was then taken to recovery room having tolerated the procedure well. Ashleigh Berman PA-C was required as a skilled program services assistant due to the complexity of surgery for patient positioning, draping, exposure, retraction, closure of wound and application of dressing. PLAN: The patient can weight-bear as tolerated on the operative extremity. 2 doses of postoperative antibiotics. DVT prophylaxis - can resume Eliquis tomorrow. Physical therapy for gait training.
--- NOTE | 2025-02-28 10:45 | FL ---
EXAMINATION TYPE: FL guidance operating room DATE OF EXAM: 02/28/2025 10:39 AM COMPARISON: Pre Operative Images if available both CT/MRI or plain film CLINICAL INDICATION: Male, 79 years old with history of Rt Hip-Ant; TECHNIQUE: FL guidance operating room, multiple fluoroscopic images provided for procedure. DAP: 0.6230 mGym2 Gycm2 uGym2 cGycm2 or equivalent. FINDINGS: Fluoroscopic images during arthroplasty demonstrate hardware in appropriate position. Hardware appear s intact. No immediate complication identified. IMPRESSION: 1. No evidence for intraoperative complication. 2. Please see the operative/procedural note for further details. [facility], , 02/28/2025 10:43 AM
[2025-02-28] MEDS: LACTATED RINGERS 1,000 ML IV ONE ×2 (10:52)
--- NOTE | 2025-02-28 12:00 | P.PN ---
Progress Note - Text I did not see this patient this patient was already in the OR
[2025-02-28] MEDS: LACTATED RINGERS 1,000 ML IV SCH (13:23)
[2025-02-28] MEDS: SODIUM CHLORIDE 0.9% 1,000 ML IV SCH (13:27)
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
[2025-02-28] MEDS: HYDROcodone/APAP 5-325MG 1 EACH TAB PO PRN (15:38)
[2025-02-28] MEDS: SENNOSIDES-DOCUSATE SODIUM 1 EACH TAB PO SCH (20:45)
--- NOTE | 2025-02-28 23:34 | P.PN ---
Subjective Progress Note Date: 02/28/25 Patient is an 79-year-old male with past medical history significant for hypertension, hyperlipidemia, atrial fibrillation anticoagulated on Eliquis, osteoarthritis reportedly scheduled for back surgery today. Patient came in after a fall while fishing yesterday. He fell on his right side/hip. Patient brought into the hospital by EMS yesterday morning. X-ray of the right hip right femoral neck fracture. Previously, overnight developed intractable nausea and vomiting. Abdominal x-ray showing prominent air and stool-filled large bowel loops with distended stomach. Subsequently, the patient had a nasogastric tube inserted. General surgery was consulted. We were consulted for the possibility of aspiration. Denies any shortness of breath. Denies any chest pain. Follow-up chest x-ray showing nasogastric tube near the epigastric region.. Possible subtle left lower lobe infiltrate. Labs from yesterday including a CBC with a WBC count of 10.7, hemoglobin 14.6, platelets 165. CMP unremarkable, electrolytes WDL, creatinine 1.16, glucose 146. Patient being evaluated on the general medical floor. He is resting comfortably on 2 L/min nasal cannula. Intermittent suction draining brown gastric content. Denies any abdominal pain. His last normal bowel movement was on Sunday. Denies any shortness of breath. Denies any coughing. Denies any chest pain. States he can feel gastric reflux in the back of his throat. Abdomen is distended but nontender. His only reported complaint right now is right hip pain. Afebrile. Vital signs are stable. 02/28/2025, the patient is being seen for a follow-up. The patient is doing well. No specific complaints. The patient was taken to the operating room and the patient underwent a right direct anterior hip hemiarthroplasty. Postop, the patient was brought back to the medical floor for further monitoring. He remains NPO. NG tube is still in place. Output from the NG tube is minimal. Abdomen is nondistended. Bowel sounds are hypoactive. Minimal flatus at this point. No chest pain. No pleurisy. No hemoptysis. No cough or sputum production. Currently on liters of oxygen by nasal cannula with a pulse ox of 96%. No new labs are available from today. UA was also negative. The patient remains on lactated Ringer at rate of 20 cc an hour. The patient is on Dilaudid for pain control, anticoagulation with Eliquis 5 mg p.o. twice a day. Rest of the home medications have been resumed. Objective - Vital Signs Vital signs: Vital Signs Temp 98.3 F 02/28/25 10:52 Pulse 80 02/28/25 11:37 Resp 16 02/28/25 11:37 BP 141/78 02/28/25 11:37 Pulse Ox 96 02/28/25 11:37 FiO2 Intake & Output 02/27/25 02/28/25 02/28/25 18:59 06:59 18:59 Intake Total 1251 Output Total 900 100 Balance -900 1151 Intake: IV 1251 Output: Gastric Drainage 800 Urine 100 Estimated Blood Loss 100 Other: Voiding Method Urinal - Exam GENERAL EXAM: Alert, 79-year-old male, on 2 L/min nasal cannula, inserted through the nare and on low intermittent suction. Brown gastric content. Fairly comfortable in no apparent distress. HEAD: Normocephalic and atraumatic EYES: Normal reaction of pupils, equal size. NOSE: Clear with pink turbinates. THROAT: No erythema or exudates. NECK: No masses, no JVD. CHEST: No chest wall deformity. Implanted pacemaker generator left chest LUNGS: Equal air entry with expiratory wheezing heard at right base. On 2 L/min nasal cannula. No conversational dyspnea or accessory muscle use.. CVS: S1 and S2 normal with no audible murmur, regular rhythm. No extra heart sounds ABDOMEN: Abdominal distention, active bowel sounds, no hepatosplenomegaly, no guarding or rigidity. SPINE: No scoliosis or deformity SKIN: No rashes CENTRAL NERVOUS SYSTEM: No focal deficits, tone is normal in all 4 extremities. EXTREMITIES: Neurovascular status right lower extremity intact. There is no peripheral edema, clubbing, or cyanosis. Peripheral pulses are intact. Right hip surgical wound site is dry clean and intact and appropriate dressing has been applied - Labs CBC & Chem 7: 02/26/25 07:15 02/26/25 07:15 Assessment and Plan Assessment: Acute hypoxemic respiratory failure, currently on 3 L/min nasal cannula, apparent concerns for witnessed aspiration, chest x-ray showing possible subtle left lower lobe infiltrate, which could represent aspiration pneumonitis or atelectasis. Intractable nausea and vomiting, abdominal x-ray showing prominent air and stool filled large bowel loops and distended stomach. NG tube was inserted for gastric decompression, and the patient has no significant abdominal distention and NG tube remains in place Fall, resulting in right femoral neck fracture, status post hemiarthroplasty and the patient is postop day #0. Paroxysmal atrial fibrillation, Eliquis has been resumed Implanted pacemaker Hypertension History of hyperlipidemia History of throat cancer with previous surgery and radiation History of lumbar degenerative disc disease and was reportedly scheduled for surgery at outside facility today. Plan: Oxygenation stable, currently on 3 L/min nasal cannula Chest x-ray reviewed, possible subtle developing left lower lobe infiltrate or atelectasis follow-up chest x-ray 24 hours Nasogastric tube was inserted for decompression No further nausea or vomiting CT scan of the abdomen and pelvis was also done on 02/27/2025 and the patient was found to have bilateral lower lobe atelectasis/airspace disease in addition to NG tube in place and scattered colonic diverticula and fat-containing inguinal hernias bilaterally. No evidence of any bowel obstruction at this point. NG tube terminating in the stomach. General surgery was consulted Continue lactated Ringer at rate of 75 cc an hour We will continue to follow,
[2025-03-01] MEDS: APIXABAN 5 MG TAB PO SCH (08:12)
--- NOTE | 2025-03-01 09:56 | P.PN ---
Subjective Progress Note Date: 03/01/25 This is Yannick Shen NP, I'm dictating on behalf of Dr. Joy's H&P and A&P. Patient was interviewed and examined. Patient is a pleasant 79-year-old male who had a trip and fall while fishing and sustained a right femoral neck fracture. Patient underwent repair with orthopedic surgery yesterday. We were initially consulted for cardiac clearance preoperatively, we are seeing the patient today for follow-up postop. Patient denies chest pain, heaviness. He reports gas pressure and a sore throat this morning. He is complaining of pain secondary to his surgery. No cardiology concerns at this time. GENERAL: Well-appearing, well-nourished and in no acute distress. NECK: Supple without JVD or thyromegaly. LUNGS: Breath sounds clear to auscultation bilaterally. Respiration equal and unlabored. No wheezes, rales or rhonchi. HEART: Regular rate and rhythm without murmurs, rubs or gallops. S1 and S2 heard. EXTREMITIES: Normal range of motion, no edema. No clubbing or cyanosis. Peripheral pulses intact and strong. VITALS: Temp 99, pulse 61, respirations 17, blood pressure 150/72, O2 saturation 96% on 3 L so from a standpoint TELEMETRY: Sinus mechanism LABS: No new labs since 02/26/2025 IMPRESSION: 1. Mechanical fall leading to right femoral neck fracture 2. Partial small bowel obstruction 3. Status post right femoral neck hip fracture repair with orthopedic surgery 4. History of PPM for sick sinus syndrome PLAN: Continue to follow postoperative orthopedic surgery recommendations. Continue to hold anticoagulation, resume once cleared by orthopedic surgery. No further recommendations from a cardiology standpoint. Objective - Vital Signs Vital signs: Vital Signs Temp 99.0 F 03/01/25 07:15 Pulse 61 03/01/25 07:15 Resp 17 03/01/25 07:15 BP 150/72 03/01/25 07:15 Pulse Ox 96 03/01/25 07:15 FiO2 Intake & Output 02/28/25 03/01/25 03/01/25 18:59 06:59 18:59 Intake Total 1351 Output Total 100 300 Balance 1251 -300 Intake: IV 1251 Oral 100 Output: Urine 300 Estimated Blood Loss 100 Other: Voiding Method Urinal Urinal # Voids 2 - Labs CBC & Chem 7: 02/26/25 07:15 02/26/25 07:15
[2025-03-01 11:03] LABS: Basophils # (A) 0.01 X 10*3/uL (0.00-0.10); Basophils % (A) 0.1 %; Eosinophils # (A) 0.14 X 10*3/uL (0.04-0.35); Eosinophils % (A) 1.2 %; HCT 36.7 % (39.6-50.0); HGB 11.7 g/dL (13.0-17.0); Immature Grans, Automated 0.80 %; Lymphocytes # (A) 0.41 X 10*3/uL (0.90-5.00); Lymphocytes % (A) 3.5 %; MCH 32.2 pg (27.0-32.0); MCHC 31.9 g/dL (32.0-37.0); MCV 101.1 FL (80.0-97.0); Monocytes # (A) 0.78 X 10*3/uL (0.20-1.00); Monocytes % (A) 6.7 %; NRBC Per 100 WBC 0 X 10*3/uL (0.00-0.01); Neutrophils # (A) 10.23 X 10*3/uL (1.80-7.70); Neutrophils % (A) 87.7 %; Platelet Count 91 X 10*3/uL (140-440); RBC 3.63 X 10*6/uL (4.40-5.60); RDW 12.9 % (11.5-14.5); WBC 11.66 X 10*3/uL (4.50-10.00)
[2025-03-01 11:18] LABS: Basophils # (A) 0.02 10*3/uL (0.00-0.10); Basophils % (A) 0.2 %; Eosinophils # (A) 0.17 10*3/uL (0.04-0.35); Eosinophils % (A) 1.4 %; HCT 34.2 % (39.6-50.0); Immature Platelet Fraction 3.4 % (1.1-6.1); Lymphocytes # (A) 0.31 10*3/uL (0.90-5.00); Lymphocytes % (A) 2.6 %; MCH 32.7 pg (27.0-32.0); MCHC 33.0 g/dL (32.0-37.0); MCV 98.8 fL (80.0-97.0); Monocytes # (A) 0.97 10*3/uL (0.20-1.00); Monocytes % (A) 8.1 %; Neutrophils # (A) 10.36 10*3/uL (1.80-7.70); Neutrophils % (A) 86.9 %; RBC 3.46 10*6/uL (4.40-5.60); RDW 12.7 % (11.5-14.5); WBC 11.92 10*3/uL (4.50-10.00)
[2025-03-01 11:23] LABS: HGB 11.3 g/dL (13.0-17.0)
[2025-03-01 11:24] LABS: Platelet Count 90 10*3/uL (140-440)
[2025-03-01 11:34] LABS: African American GFR (CKD) 66 (>60 ml/min/1.73 sqM); Anion Gap 5 mmol/L; Blood Urea Nitrogen 34 mg/dL (9-20); Calcium 9.5 mg/dL (8.4-10.2); Carbon Dioxide 26 mmol/L (22-30); Chloride 105 mmol/L (98-107); Glucose 117 mg/dL (74-99); Non-African American GFR(CKD) 57 (>60 ml/min/1.73 sqM); Potassium 4.1 mmol/L (3.5-5.1); Sodium 136 mmol/L (137-145)
--- NOTE | 2025-03-01 13:31 | P.PN ---
Subjective Progress Note Date: 03/01/25 This is an 79 year-old male who is status post right direct anterior hip hemiarthroplasty. This is postoperative day #1 and patient is seen and evaluated at bedside today. Patient states that his pain is under control, but he is nauseous today. Objective - Vital Signs Vital signs: Vital Signs Temp 99.0 F 03/01/25 07:15 Pulse 61 03/01/25 07:15 Resp 17 03/01/25 07:15 BP 150/72 03/01/25 07:15 Pulse Ox 96 03/01/25 07:15 FiO2 Intake & Output 02/28/25 03/01/25 03/01/25 18:59 06:59 18:59 Intake Total 1351 Output Total 100 300 Balance 1251 -300 Intake: IV 1251 Oral 100 Output: Urine 300 Estimated Blood Loss 100 Other: Voiding Method Urinal Urinal # Voids 2 - Exam Vital signs are stable. Patient is in no acute distress and is alert and oriented 3. Calf is soft and nontender to palpation. Dressing is clean, dry, and intact. Patient has full foot and ankle motion without pain or difficulty. Sensation intact. Neurovascular status and circulatory status are intact. - Labs CBC & Chem 7: 03/01/25 11:07 03/01/25 11:07 Labs: Abnormal Lab Results - Last 24 Hours (Table) 03/01/25 03/01/25 03/01/25 Range/Units 03:29 11:07 11:07 WBC 11.66 H 11.92 H (4.50-10.00) X 10*3/uL RBC 3.63 L 3.46 L (4.40-5.60) X 10*6/uL Hgb 11.7 L 11.3 L D (13.0-17.0) g/dL Hct 36.7 L 34.2 L (39.6-50.0) % MCV 101.1 H 98.8 H (80.0-97.0) FL MCH 32.2 H 32.7 H (27.0-32.0) pg MCHC 31.9 L (32.0-37.0) g/dL Plt Count 91 L 90 L (140-440) X 10*3/uL Immature Gran # 0.09 H 0.09 H (0.00-0.04) X 10*3/uL Neutrophils # 10.23 H 10.36 H (1.80-7.70) X 10*3/uL Lymphocytes # 0.41 L 0.31 L (0.90-5.00) X 10*3/uL Sodium 136 L (137-145) mmol/L BUN 34 H (9-20) mg/dL Glucose 117 H (74-99) mg/dL Assessment and Plan (1) S/P hip hemiarthroplasty Current Visit: Yes Status: Acute Code(s): Z96.649 - PRESENCE OF UNSPECIFIED ARTIFICIAL HIP JOINT SNOMED Code(s): 962855679 (2) Fracture of femoral neck, right Current Visit: Yes Status: Acute Code(s): S72.001A - FRACTURE OF UNSP PART OF NECK OF RIGHT FEMUR, INIT SNOMED Code(s): 8930871 Plan: Continue routine postop care and pain control. Patient has resumed Eliquis. Weightbearing as tolerated with a walker. Leave dressing in place for 7 days. Appreciate input from internal medicine. Anticipate discharge to ECF in the next 24-48 hours.
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
--- NOTE | 2025-03-01 18:59 | P.PN ---
Subjective Patient seen and evaluated at bedside. patient doing well, pain controlled. Objective - Vital Signs Vital signs: Vital Signs Temp 98.0 F 03/01/25 14:00 Pulse 55 L 03/01/25 14:00 Resp 16 03/01/25 14:00 BP 143/78 03/01/25 14:00 Pulse Ox 97 03/01/25 14:00 FiO2 Intake & Output 02/28/25 03/01/25 03/01/25 18:59 06:59 18:59 Intake Total 1351 200 Output Total 100 300 400 Balance 1251 -300 -200 Intake: IV 1251 Oral 100 200 Output: Urine 300 400 Estimated Blood Loss 100 Other: Voiding Method Urinal Urinal # Voids 2 2 - Exam gen: nad cv: rrr pul: non labored breathing abd: soft, non distended, non tender to palpation, no guarding or rebound tenderness - Labs CBC & Chem 7: 03/01/25 11:07 03/01/25 11:07 Labs: Abnormal Lab Results - Last 24 Hours (Table) 03/01/25 03/01/25 03/01/25 Range/Units 03:29 11:07 11:07 WBC 11.66 H 11.92 H (4.50-10.00) X 10*3/uL RBC 3.63 L 3.46 L (4.40-5.60) X 10*6/uL Hgb 11.7 L 11.3 L D (13.0-17.0) g/dL Hct 36.7 L 34.2 L (39.6-50.0) % MCV 101.1 H 98.8 H (80.0-97.0) FL MCH 32.2 H 32.7 H (27.0-32.0) pg MCHC 31.9 L (32.0-37.0) g/dL Plt Count 91 L 90 L (140-440) X 10*3/uL Immature Gran # 0.09 H 0.09 H (0.00-0.04) X 10*3/uL Neutrophils # 10.23 H 10.36 H (1.80-7.70) X 10*3/uL Lymphocytes # 0.41 L 0.31 L (0.90-5.00) X 10*3/uL Sodium 136 L (137-145) mmol/L BUN 34 H (9-20) mg/dL Glucose 117 H (74-99) mg/dL Assessment and Plan Assessment: 79 yo male s/p r IMN of femur Acute blood loss anemia Repeat hemoglobin currently stable no need for transfusion as patient is not hypotensive or tachycardic PT OT Will continue to follow Time with Patient: Less than 30
--- NOTE | 2025-03-01 21:53 | P.PN ---
Subjective Progress Note Date: 03/01/25 Patient is an 79-year-old male with past medical history significant for hypertension, hyperlipidemia, atrial fibrillation anticoagulated on Eliquis, osteoarthritis reportedly scheduled for back surgery today. Patient came in after a fall while fishing yesterday. He fell on his right side/hip. Patient brought into the hospital by EMS yesterday morning. X-ray of the right hip right femoral neck fracture. Previously, overnight developed intractable nausea and vomiting. Abdominal x-ray showing prominent air and stool-filled large bowel loops with distended stomach. Subsequently, the patient had a nasogastric tube inserted. General surgery was consulted. We were consulted for the possibility of aspiration. Denies any shortness of breath. Denies any chest pain. Follow-up chest x-ray showing nasogastric tube near the epigastric region.. Possible subtle left lower lobe infiltrate. Labs from yesterday including a CBC with a WBC count of 10.7, hemoglobin 14.6, platelets 165. CMP unremarkable, electrolytes WDL, creatinine 1.16, glucose 146. Patient being evaluated on the general medical floor. He is resting comfortably on 2 L/min nasal cannula. Intermittent suction draining brown gastric content. Denies any abdominal pain. His last normal bowel movement was on Sunday. Denies any shortness of breath. Denies any coughing. Denies any chest pain. States he can feel gastric reflux in the back of his throat. Abdomen is distended but nontender. His only reported complaint right now is right hip pain. Afebrile. Vital signs are stable. 02/28/2025, the patient is being seen for a follow-up. The patient is doing well. No specific complaints. The patient was taken to the operating room and the patient underwent a right direct anterior hip hemiarthroplasty. Postop, the patient was brought back to the medical floor for further monitoring. He remains NPO. NG tube is still in place. Output from the NG tube is minimal. Abdomen is nondistended. Bowel sounds are hypoactive. Minimal flatus at this point. No chest pain. No pleurisy. No hemoptysis. No cough or sputum production. Currently on liters of oxygen by nasal cannula with a pulse ox of 96%. No new labs are available from today. UA was also negative. The patient remains on lactated Ringer at rate of 20 cc an hour. The patient is on Dilaudid for pain control, anticoagulation with Eliquis 5 mg p.o. twice a day. Rest of the home medications have been resumed. On 03/01/2025, the patient is stable. No new complaints. NG tube has been removed and the patient is passing some flatus and small bowel movement activity. The patient is post-ORIF/anterior hemiarthroplasty of the right hip. Pain is under adequate control. No significant respiratory distress. He has chronic back pain his mobility is limited. He remains on oxygen at 3 L and he was transitioned to room air oxygen with a pulse ox of 97%. WBC count is 11.9 with a hemoglobin 11.3 and a platelet count of 90. BUN 34 with a creatinine of 1.1. Sodium levels at 136. No other new complaints otherwise for now. He is on anticoagulation with Eliquis 5 mg p.o. twice a day. On Benedict for pain control. He was given milk of mag and Senokot and is also on normal saline at rate of 70 cc an hour. Patient is on the the care of general surgery regarding his ileus. He is also under the care of orthopedic surgery post right hip arthroplasty. Objective - Vital Signs Vital signs: Vital Signs Temp 99.0 F 03/01/25 07:15 Pulse 61 03/01/25 07:15 Resp 17 03/01/25 07:15 BP 150/72 03/01/25 07:15 Pulse Ox 96 03/01/25 07:15 FiO2 Intake & Output 02/28/25 03/01/25 03/01/25 18:59 06:59 18:59 Intake Total 1351 Output Total 100 300 Balance 1251 -300 Intake: IV 1251 Oral 100 Output: Urine 300 Estimated Blood Loss 100 Other: Voiding Method Urinal Urinal # Voids 2 - Exam GENERAL EXAM: Alert, 79-year-old male, on 2 L/min nasal cannula, NG tube has been removed. Fairly comfortable in no apparent distress. HEAD: Normocephalic and atraumatic EYES: Normal reaction of pupils, equal size. NOSE: Clear with pink turbinates. THROAT: No erythema or exudates. NECK: No masses, no JVD. CHEST: No chest wall deformity. Implanted pacemaker generator left chest LUNGS: Equal air entry with expiratory wheezing heard at right base. . No conversational dyspnea or accessory muscle use.. CVS: S1 and S2 normal with no audible murmur, regular rhythm. No extra heart sounds ABDOMEN: Abdominal distention, active bowel sounds, no hepatosplenomegaly, no guarding or rigidity. SPINE: No scoliosis or deformity SKIN: No rashes CENTRAL NERVOUS SYSTEM: No focal deficits, tone is normal in all 4 extremities. EXTREMITIES: Neurovascular status right lower extremity intact. There is no peripheral edema, clubbing, or cyanosis. Peripheral pulses are intact. Right hip surgical wound site is dry clean and intact and appropriate dressing has been applied - Labs CBC & Chem 7: 03/01/25 11:07 03/01/25 11:07 Labs: Abnormal Lab Results - Last 24 Hours (Table) 03/01/25 03/01/25 03/01/25 Range/Units 03: 11:07 11:07 WBC 11.66 H 11.92 H (4.50-10.00) X 10*3/uL RBC 3.63 L 3.46 L (4.40-5.60) X 10*6/uL Hgb 11.7 L 11.3 L D (13.0-17.0) g/dL Hct 36.7 L 34.2 L (39.6-50.0) % MCV 101.1 H 98.8 H (80.0-97.0) FL MCH 32.2 H 32.7 H (27.0-32.0) pg MCHC 31.9 L (32.0-37.0) g/dL Plt Count 91 L 90 L (140-440) X 10*3/uL Immature Gran # 0.09 H 0.09 H (0.00-0.04) X 10*3/uL Neutrophils # 10.23 H 10.36 H (1.80-7.70) X 10*3/uL Lymphocytes # 0.41 L 0.31 L (0.90-5.00) X 10*3/uL Sodium 136 L (137-145) mmol/L BUN 34 H (9-20) mg/dL Glucose 117 H (74-99) mg/dL Assessment and Plan Assessment: Acute hypoxemic respiratory failure, currently on room air oxygen, apparent concerns for witnessed aspiration, chest x-ray showing possible subtle left lower lobe infiltrate, which could represent aspiration pneumonitis or atelectasis. Intractable nausea and vomiting, abdominal x-ray showing prominent air and stool filled large bowel loops and distended stomach. NG tube was inserted for gastric decompression, and the patient has no significant abdominal distention and NG tube was subsequently removed. General surgery is on the case. Fall, resulting in right femoral neck fracture, status post hemiarthroplasty and the patient is postop day # 1 Paroxysmal atrial fibrillation, Eliquis has been resumed Implanted pacemaker Hypertension History of hyperlipidemia History of throat cancer with previous surgery and radiation History of lumbar degenerative disc disease and was reportedly scheduled for surgery at outside facility today. Plan: Oxygenation stable, currently on 2 L and she will be transitioned to room air oxygen. Chest x-ray reviewed, possible subtle developing left lower lobe infiltrate or atelectasis follow-up chest x-ray 24 hours Nasogastric tube was inserted and subsequently removed. General surgery is on the case. No further nausea or vomiting CT scan of the abdomen and pelvis was also done on 02/27/2025 and the patient was found to have bilateral lower lobe atelectasis/airspace disease in addition to NG tube in place and scattered colonic diverticula and fat-containing inguinal hernias bilaterally. No evidence of any bowel obstruction at this point. General surgery was consulted Continue lactated Ringer at rate of 75 cc an hour We will continue to follow,
--- NOTE | 2025-03-02 08:31 | P.PN ---
Subjective Progress Note Date: 03/02/25 This is an 79 year-old male who is status post right direct anterior hip hemiarthroplasty. This is postoperative day #2 and patient is seen and evaluated at bedside today. Patient states that his pain is under control, but he is nauseous today. Objective - Vital Signs Vital signs: Vital Signs Temp 98.3 F 03/02/25 01:57 Pulse 61 03/02/25 01:57 Resp 18 03/02/25 01:57 BP 116/66 03/02/25 01:57 Pulse Ox 97 03/02/25 01:57 FiO2 Intake & Output 03/01/25 03/02/25 03/02/25 18:59 06:59 18:59 Intake Total 200 Output Total 400 Balance -200 Intake: Oral 200 Output: Urine 400 Other: Voiding Method Urinal Urinal # Voids 2 1 - Exam Patient was examined at bedside. Patient is resting comfortably in bed. No apparent distress. They are awake, alert and able to answer questions. Inspection: The surgical dressing is intact, there is no drainage or strikethrough. The skin surrounding the dressing is free of erythema. There is mild swelling in the operative thigh. Palpation: The operative right calf is soft to compression. No calf tenderness. Neurovascular: Operative femoral nerve function is intact. The patient is able to actively plantarflex and dorsiflex their operative ankle and toes. Operative extremity sensation is intact to light touch throughout. Their operative foot appears well perfused, palpable dorsalis pedis pulse, and capillary refill under 2 seconds. - Labs CBC & Chem 7: 03/01/25 11:07 03/01/25 11:07 Labs: Abnormal Lab Results - Last 24 Hours (Table) 03/01/25 03/01/25 03/01/25 Range/Units 03: 11:07 11:07 WBC 11.66 H 11.92 H (4.50-10.00) X 10*3/uL RBC 3.63 L 3.46 L (4.40-5.60) X 10*6/uL Hgb 11.7 L 11.3 L D (13.0-17.0) g/dL Hct 36.7 L 34.2 L (39.6-50.0) % MCV 101.1 H 98.8 H (80.0-97.0) FL MCH 32.2 H 32.7 H (27.0-32.0) pg MCHC 31.9 L (32.0-37.0) g/dL Plt Count 91 L 90 L (140-440) X 10*3/uL Immature Gran # 0.09 H 0.09 H (0.00-0.04) X 10*3/uL Neutrophils # 10.23 H 10.36 H (1.80-7.70) X 10*3/uL Lymphocytes # 0.41 L 0.31 L (0.90-5.00) X 10*3/uL Sodium 136 L (137-145) mmol/L BUN 34 H (9-20) mg/dL Glucose 117 H (74-99) mg/dL Assessment and Plan Assessment: S/P hip hemiarthroplasty Displaced right femoral neck fracture Right hip pain History of lumbar stenosis On Eliquis 5 mg twice daily chronically Plan: Continue routine postop care and pain control. Patient has resumed Eliquis. Weightbearing as tolerated with a walker. Leave dressing in place for 14 days. Appreciate input from internal medicine. Dispo: will work with PT today. Anticipate discharge to ECF if cleared by PT and Internal Medicine today or tomorrow.
--- NOTE | 2025-03-02 12:11 | P.PN ---
Subjective Progress Note Date: 03/02/25 Patient seen and examined at bedside. No significant complaints today. States nausea comes and goes Objective - Vital Signs Vital signs: Vital Signs Temp 98.1 F 03/02/25 08:00 Pulse 63 03/02/25 08:00 Resp 17 03/02/25 08:00 BP 150/85 03/02/25 08:00 Pulse Ox 97 03/02/25 09:36 FiO2 Intake & Output 03/01/25 03/02/25 03/02/25 18:59 06:59 18:59 Intake Total 200 Output Total 400 Balance -200 Intake: Oral 200 Output: Urine 400 Other: Voiding Method Urinal Urinal Urinal # Voids 2 1 - Constitutional General appearance: Present: cooperative - Gastrointestinal Gastrointestinal Comment(s): Soft, nontender - Labs CBC & Chem 7: 03/01/25 11:07 03/01/25 11:07 Assessment and Plan Plan: 79-year-old male status post IM nailing of right lower extremity. Abdominal exam appears negative. Hemoglobin stable. No further recommendations from trauma standpoint.
--- NOTE | 2025-03-02 12:29 | P.PN ---
Subjective Progress Note Date: 03/02/25 Patient is an 79-year-old male with past medical history significant for hypertension, hyperlipidemia, atrial fibrillation anticoagulated on Eliquis, osteoarthritis reportedly scheduled for back surgery today. Patient came in after a fall while fishing yesterday. He fell on his right side/hip. Patient brought into the hospital by EMS yesterday morning. X-ray of the right hip right femoral neck fracture. Previously, overnight developed intractable nausea and vomiting. Abdominal x-ray showing prominent air and stool-filled large bowel loops with distended stomach. Subsequently, the patient had a nasogastric tube inserted. General surgery was consulted. We were consulted for the possibility of aspiration. Denies any shortness of breath. Denies any chest pain. Follow-up chest x-ray showing nasogastric tube near the epigastric region.. Possible subtle left lower lobe infiltrate. Labs from yesterday including a CBC with a WBC count of 10.7, hemoglobin 14.6, platelets 165. CMP unremarkable, electrolytes WDL, creatinine 1.16, glucose 146. Patient being evaluated on the general medical floor. He is resting comfortably on 2 L/min nasal cannula. Intermittent suction draining brown gastric content. Denies any abdominal pain. His last normal bowel movement was on Sunday. Denies any shortness of breath. Denies any coughing. Denies any chest pain. States he can feel gastric reflux in the back of his throat. Abdomen is distended but nontender. His only reported complaint right now is right hip pain. Afebrile. Vital signs are stable. 02/28/2025, the patient is being seen for a follow-up. The patient is doing well. No specific complaints. The patient was taken to the operating room and the patient underwent a right direct anterior hip hemiarthroplasty. Postop, the patient was brought back to the medical floor for further monitoring. He remains NPO. NG tube is still in place. Output from the NG tube is minimal. Abdomen is nondistended. Bowel sounds are hypoactive. Minimal flatus at this point. No chest pain. No pleurisy. No hemoptysis. No cough or sputum production. Currently on liters of oxygen by nasal cannula with a pulse ox of 96%. No new labs are available from today. UA was also negative. The patient remains on lactated Ringer at rate of 20 cc an hour. The patient is on Dilaudid for pain control, anticoagulation with Eliquis 5 mg p.o. twice a day. Rest of the home medications have been resumed. On 03/01/2025, the patient is stable. No new complaints. NG tube has been removed and the patient is passing some flatus and small bowel movement activity. The patient is post-ORIF/anterior hemiarthroplasty of the right hip. Pain is under adequate control. No significant respiratory distress. He has chronic back pain his mobility is limited. He remains on oxygen at 3 L and he was transitioned to room air oxygen with a pulse ox of 97%. WBC count is 11.9 with a hemoglobin 11.3 and a platelet count of 90. BUN 34 with a creatinine of 1.1. Sodium levels at 136. No other new complaints otherwise for now. He is on anticoagulation with Eliquis 5 mg p.o. twice a day. On [place] for pain control. He was given milk of mag and Senokot and is also on normal saline at rate of 70 cc an hour. Patient is on the the care of general surgery regarding his ileus. He is also under the care of orthopedic surgery post right hip arthroplasty. The patient is seen today March 02, 2025 in follow-up in the regular medical floor. He is post right direct anterior hip hemiarthroplasty. Postoperative day #2. He is currently sitting up in a chair at the bedside. Awake and alert in no acute distress. He denies any shortness of breath, cough or congestion. He is maintaining good O2 saturations in the upper 90s on room air oxygen. He has been afebrile. Hemodynamically stable. No new labs today. He remains on DuoNeb inhalations. Anticoagulated with Eliquis. Pain is adequately controlled. Working with physical therapy. May need subacute rehab at discharge. Objective - Vital Signs Vital signs: Vital Signs Temp 98.1 F 03/02/25 08:00 Pulse 63 03/02/25 08:00 Resp 17 03/02/25 08:00 BP 150/85 03/02/25 08:00 Pulse Ox 97 03/02/25 09:36 FiO2 Intake & Output 03/01/25 03/02/25 03/02/25 18:59 06:59 18:59 Intake Total 200 Output Total 400 Balance -200 Intake: Oral 200 Output: Urine 400 Other: Voiding Method Urinal Urinal Urinal # Voids 2 1 - Exam GENERAL EXAM: Alert, 79-year-old male, on room air oxygen. Up in a chair. Comfortable in no apparent distress. HEAD: Normocephalic and atraumatic EYES: Normal reaction of pupils, equal size. NOSE: Clear with pink turbinates. THROAT: No erythema or exudates. NECK: No masses, no JVD. CHEST: No chest wall deformity. Implanted pacemaker generator left chest LUNGS: Equal air entry with expiratory wheezing heard at right base. No conversational dyspnea or accessory muscle use. CVS: S1 and S2 normal with no audible murmur, regular rhythm. No extra heart sounds ABDOMEN: Abdominal distention, active bowel sounds, no hepatosplenomegaly, no guarding or rigidity. SPINE: No scoliosis or deformity SKIN: No rashes CENTRAL NERVOUS SYSTEM: No focal deficits, tone is normal in all 4 extremities. EXTREMITIES: Neurovascular status right lower extremity intact. Peripheral pulses are intact. Right hip surgical wound site is dry clean and intact and appropriate dressing has been applied - Labs CBC & Chem 7: 03/01/25 11:07 03/01/25 11:07 Assessment and Plan Assessment: Acute hypoxemic respiratory failure, recovered and currently on room air oxygen, concerns for witnessed aspiration, chest x-ray showing possible subtle left lower lobe infiltrate, which could represent aspiration pneumonitis or at electasis. Intractable nausea and vomiting, abdominal x-ray showing prominent air and stool filled large bowel loops and distended stomach. NG tube was inserted for gastric decompression, and the patient has no significant abdominal distention and NG tube was subsequently removed. General surgery is on the case. Fall, resulting in right femoral neck fracture, status post hemiarthroplasty and the patient is postop day # 2 Paroxysmal atrial fibrillation, Eliquis has been resumed Implanted pacemaker Hypertension History of hyperlipidemia History of throat cancer with previous surgery and radiation History of lumbar degenerative disc disease and was reportedly scheduled for surgery at outside facility Plan: The patient was seen and evaluated Most recent chest x-ray, labs and medications reviewed Currently stable and on room air oxygen Encouraged the increased use of the incentive spirometer Continue bronchodilators as needed Assure adequate pain control Anticoagulated with Eliquis Being evaluated for possible subacute rehabilitation This patient was seen independently by the pulmonary nurse practitioner addressing pulmonary issues I have personally seen and examined the patient, performed the documentation and the assessment and plan as written. Number of minutes spent on the visit: 25 Dictation was produced using [employer] dictation software. Please excuse any grammatical, word or spelling errors.
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
--- NOTE | 2025-03-03 06:54 | XR ---
EXAMINATION TYPE: XR chest 2V DATE OF EXAM: 03/03/2025 6:41 AM COMPARISON: Chest radiographs from 02/28/2025. CLINICAL INDICATION: Male, 79 years old with history of low oxygen saturation; [facility] TECHNIQUE: XR chest 2V Frontal and lateral views of the chest. FINDINGS: Lungs/Pleura: Low lung volumes are present. There is no evidence of pleural effusion, focal consolida tion, or pneumothorax. Pulmonary vascularity: Unremarkable. Heart/mediastinum: Cardiomediastinal silhouette is enlarged. Two lead cardiac conduction device overl kayleen the left hemithorax with lead tips projecting over the right ventricle and right atrium. Musculoskeletal: No acute osseous pathology. Multiple right-sided remote rib injuries. Removal of nasogastric tube from 02/20/2025. IMPRESSION: Mild pulmonary edema versus low lung volumes [facility], , 03/03/2025 6:52 AM
[2025-03-03 07:20] LABS: HCT 35.5 % (39.6-50.0); HGB 11.2 g/dL (13.0-17.0); RBC 3.55 X 10*6/uL (4.40-5.60); WBC 8.73 X 10*3/uL (4.50-10.00)
[2025-03-03 07:21] LABS: Basophils # (A) 0.02 X 10*3/uL (0.00-0.10); Basophils % (A) 0.2 %; Eosinophils # (A) 0.18 X 10*3/uL (0.04-0.35); Eosinophils % (A) 2.1 %; Immature Grans, Automated 0.90 %; Lymphocytes # (A) 0.44 X 10*3/uL (0.90-5.00); Lymphocytes % (A) 5.0 %; MCH 31.5 pg (27.0-32.0); MCHC 31.5 g/dL (32.0-37.0); MCV 100.0 FL (80.0-97.0); Monocytes # (A) 1.04 X 10*3/uL (0.20-1.00); Monocytes % (A) 11.9 %; NRBC Per 100 WBC 0 X 10*3/uL (0.00-0.01); Neutrophils # (A) 6.97 X 10*3/uL (1.80-7.70); Neutrophils % (A) 79.9 %; Platelet Count 122 X 10*3/uL (140-440); RDW 12.6 % (11.5-14.5)
[2025-03-03 09:21] VITALS: RESP 17; TEMP 98.1
--- NOTE | 2025-03-03 10:25 | P.PN ---
Subjective Progress Note Date: 03/03/25 Patient is an 79-year-old male with past medical history significant for hypertension, hyperlipidemia, atrial fibrillation anticoagulated on Eliquis, osteoarthritis reportedly scheduled for back surgery today. Patient came in after a fall while fishing yesterday. He fell on his right side/hip. Patient brought into the hospital by EMS yesterday morning. X-ray of the right hip right femoral neck fracture. Previously, overnight developed intractable nausea and vomiting. Abdominal x-ray showing prominent air and stool-filled large bowel loops with distended stomach. Subsequently, the patient had a nasogastric tube inserted. General surgery was consulted. We were consulted for the possibility of aspiration. Denies any shortness of breath. Denies any chest pain. Follow-up chest x-ray showing nasogastric tube near the epigastric region.. Possible subtle left lower lobe infiltrate. Labs from yesterday including a CBC with a WBC count of 10.7, hemoglobin 14.6, platelets 165. CMP unremarkable, electrolytes WDL, creatinine 1.16, glucose 146. Patient being evaluated on the general medical floor. He is resting comfortably on 2 L/min nasal cannula. Intermittent suction draining brown gastric content. Denies any abdominal pain. His last normal bowel movement was on Sunday. Denies any shortness of breath. Denies any coughing. Denies any chest pain. States he can feel gastric reflux in the back of his throat. Abdomen is distended but nontender. His only reported complaint right now is right hip pain. Afebrile. Vital signs are stable. 02/28/2025, the patient is being seen for a follow-up. The patient is doing well. No specific complaints. The patient was taken to the operating room and the patient underwent a right direct anterior hip hemiarthroplasty. Postop, the patient was brought back to the medical floor for further monitoring. He remains NPO. NG tube is still in place. Output from the NG tube is minimal. Abdomen is nondistended. Bowel sounds are hypoactive. Minimal flatus at this point. No chest pain. No pleurisy. No hemoptysis. No cough or sputum production. Currently on liters of oxygen by nasal cannula with a pulse ox of 96%. No new labs are available from today. UA was also negative. The patient remains on lactated Ringer at rate of 20 cc an hour. The patient is on Dilaudid for pain control, anticoagulation with Eliquis 5 mg p.o. twice a day. Rest of the home medications have been resumed. On 03/01/2025, the patient is stable. No new complaints. NG tube has been removed and the patient is passing some flatus and small bowel movement activity. The patient is post-ORIF/anterior hemiarthroplasty of the right hip. Pain is under adequate control. No significant respiratory distress. He has chronic back pain his mobility is limited. He remains on oxygen at 3 L and he was transitioned to room air oxygen with a pulse ox of 97%. WBC count is 11.9 with a hemoglobin 11.3 and a platelet count of 90. BUN 34 with a creatinine of 1.1. Sodium levels at 136. No other new complaints otherwise for now. He is on anticoagulation with Eliquis 5 mg p.o. twice a day. On [place] for pain control. He was given milk of mag and Senokot and is also on normal saline at rate of 70 cc an hour. Patient is on the the care of general surgery regarding his ileus. He is also under the care of orthopedic surgery post right hip arthroplasty. The patient is seen today March 02, 2025 in follow-up in the regular medical floor. He is post right direct anterior hip hemiarthroplasty. Postoperative day #2. He is currently sitting up in a chair at the bedside. Awake and alert in no acute distress. He denies any shortness of breath, cough or congestion. He is maintaining good O2 saturations in the upper 90s on room air oxygen. He has been afebrile. Hemodynamically stable. No new labs today. He remains on DuoNeb inhalations. Anticoagulated with Eliquis. Pain is adequately controlled. Working with physical therapy. May need subacute rehab at discharge. The patient is seen today March 03, 2025 in follow-up on the regular medical floor. Postoperative day #3. He is currently resting in bed. Awake and alert in no acute distress. Denies any worsening shortness of breath, cough or congestion. He is maintaining good O2 saturation in the upper 90s on 2 L/min per nasal cannula. He has been afebrile. Hemodynamically stable. Chest x-ray reveals mild pulmonary edema. No pleural effusion. No focal consolidation. No pneumothorax. White count 8.7. Hemoglobin 11.2. Platelets 122. He is continued on DuoNeb inhalations, Robitussin as needed, Dilaudid for pain control. Anticoagulated with Eliquis. Objective - Vital Signs Vital signs: Vital Signs Temp 98.1 F 03/03/25 09:00 Pulse 61 03/03/25 09:00 Resp 17 03/03/25 09:00 BP 144/77 03/03/25 09:00 Pulse Ox 97 03/03/25 09:00 FiO2 Intake & Output 03/02/25 03/03/25 03/03/25 18:59 06:59 18:59 Output Total 500 Balance -500 Output: Urine 500 Other: Voiding Method Urinal Urinal Urinal # Voids 3 - Exam GENERAL EXAM: Alert, pleasant 79-year-old male, on room air oxygen. Resting in bed, comfortable in no apparent distress. HEAD: Normocephalic and atraumatic EYES: Normal reaction of pupils, equal size. NOSE: Clear with pink turbinates. THROAT: No erythema or exudates. NECK: No masses, no JVD. CHEST: No chest wall deformity. Implanted pacemaker generator left chest LUNGS: Equal air entry with expiratory wheezing heard at right base. No conversational dyspnea or accessory muscle use. CVS: S1 and S2 normal with no audible murmur, regular rhythm. No extra heart sounds ABDOMEN: Abdominal distention, active bowel sounds, no hepatosplenomegaly, no guarding or rigidity. SPINE: No scoliosis or deformity SKIN: No rashes CENTRAL NERVOUS SYSTEM: No focal deficits, tone is normal in all 4 extremities. EXTREMITIES: Neurovascular status right lower extremity intact. Peripheral p ulses are intact. Right hip surgical wound site is dry clean and intact and appropriate dressing has been applied - Labs CBC & Chem 7: 03/03/25 03:35 03/01/25 11:07 Labs: Abnormal Lab Results - Last 24 Hours (Table) 03/03/25 Range/Units 03:35 RBC 3.55 L (4.40-5.60) X 10*6/uL Hgb 11.2 L (13.0-17.0) g/dL Hct 35.5 L (39.6-50.0) % MCV 100.0 H (80.0-97.0) FL MCHC 31.5 L (32.0-37.0) g/dL Plt Count 122 L (140-440) X 10*3/uL Immature Gran # 0.08 H (0.00-0.04) X 10*3/uL Lymphocytes # 0.44 L (0.90-5.00) X 10*3/uL Monocytes # 1.04 H (0.20-1.00) X 10*3/uL Assessment and Plan Assessment: Acute hypoxemic respiratory failure, recovered and currently on room air oxygen, concerns for witnessed aspiration, chest x-ray showing possible subtle fluid volume overload Intractable nausea and vomiting, abdominal x-ray showing prominent air and stool filled large bowel loops and distended stomach. NG tube was inserted for gastric decompression, and the patient has no significant abdominal distention and NG tube was subsequently removed. General surgery is on the case. Fall, resulting in right femoral neck fracture, status post hemiarthroplasty and the patient is postop day #3 Paroxysmal atrial fibrillation, Eliquis has been resumed Implanted pacemaker Hypertension History of hyperlipidemia History of throat cancer with previous surgery and radiation History of lumbar degenerative disc disease and was reportedly scheduled for surgery at outside facility Plan: The patient was seen and evaluated Chest x-ray, labs and medications reviewed Currently stable and on 2 L nasal cannula Encouraged the increased use of the incentive spirometer Continue bronchodilators Assure adequate pain control Anticoagulated with Eliquis Encouraged increase activity as tolerated Working with physical therapy May require subacute rehabilitation at discharge This patient was seen independently by the pulmonary nurse practitioner address ing pulmonary issues I have personally seen and examined the patient, performed the documentation and the assessment and plan as written. Number of minutes spent on the visit: 23 Dictation was produced using [employer] dictation software. Please excuse any grammatical, word or spelling errors.
--- NOTE | 2025-03-03 14:09 | P.PN ---
Subjective Progress Note Date: 03/03/25 SURGICAL PROGRESS NOTE CHIEF COMPLAINT: Fall with right femoral neck fracture HISTORY OF PRESENT ILLNESS: Patient is status post orthopedic surgery for right femoral neck fracture. Surgical service following regards to abdominal ileus. He is having flatus. Denies any nausea or vomiting. Had tiny bowel movement a few days ago. Patient does not like the Dulcolax suppositories. Afebrile. WBC 8.73 Hgb 11.2 PHYSICAL EXAM: VITAL SIGNS: Reviewed. GENERAL: Well-developed in no acute distress. ABDOMEN: Soft. Nondistended. Nontender. Patient reports abdomen to his normal size NEUROLOGIC: Alert and oriented. Cranial nerves II through XII grossly intact. ASSESSMENT: 1. Ileus with distended abdomen. Resolving. 2. Fall with right femoral neck fracture status post Ortho surgery PLAN: - Add MiraLAX for constipation - Add Ensure protein drinks for nutrition supplement - Increase activity level - Planning for ECF placement - Advance diet to regular - Discontinue Dulcolax suppository Physician Procurement Technician note has been reviewed by physician. Signing provider agrees with the documented findings, assessment, and plan of care. Objective - Vital Signs Vital signs: Vital Signs Temp 98.1 F 03/03/25 09:00 Pulse 61 03/03/25 09:00 Resp 17 03/03/25 09:00 BP 144/77 03/03/25 09:00 Pulse Ox 97 03/03/25 09:00 FiO2 Intake & Output 03/02/25 03/03/25 03/03/25 18:59 06:59 18:59 Output Total 500 Balance -500 Output: Urine 500 Other: Voiding Method Urinal Urinal Urinal # Voids 3 - Labs CBC & Chem 7: 03/03/25 03:35 03/01/25 11:07 Labs: Abnormal Lab Results - Last 24 Hours (Table) 03/03/25 Range/Units 03:35 RBC 3.55 L (4.40-5.60) X 10*6/uL Hgb 11.2 L (13.0-17.0) g/dL Hct 35.5 L (39.6-50.0) % MCV 100.0 H (80.0-97.0) FL MCHC 31.5 L (32.0-37.0) g/dL Plt Count 122 L (140-440) X 10*3/uL Immature Gran # 0.08 H (0.00-0.04) X 10*3/uL Lymphocytes # 0.44 L (0.90-5.00) X 10*3/uL Monocytes # 1.04 H (0.20-1.00) X 10*3/uL
--- NOTE | 2025-03-03 14:21 | P.DS ---
Providers Date of admission: 02/26/25 08:20 Attending physician: Jimenez Maldonado Consults: 02/26/25 08:21 Consult Physician Urgent Consulting Provider: Sherwin Mena Consult Reason/Comments: Medical management Do you want consulting provider notified?: Yes 02/27/25 05:53 Consult Physician Routine Consulting Provider: John Day Consult Reason/Comments: Aspiration Do you want consulting provider notified?: Yes Consult Physician Urgent Consulting Provider: Drew Miranda Consult Reason/Comments: Parital obstruction Do you want consulting provider notified?: Yes Primary care physician: Sherwin Mena [facility] Course: HPI: This is a very pleasant 79-year-old with stated past medical history of prior cigarette smoker, distal amputations of the right middle and little finger due to trauma, a left foot tendon repair by Dr. George, a right knee arthroscopy, bilateral knee osteoarthritis, unknown name of procedures to bilateral shoulders, and lumbar stenosis who was scheduled to undergo a minimally invasive procedure in [place] with Dr. Williamson on 02/27/2025, who presented to the [facility] emergency department on 02/26/2025 for right hip pain status post ground-level fall. The patient stated they were fishing at 3 AM on 02/26/2025 and caught a fish and tripped and fell and landed on the right hip. They were not able to ambulate after. The patient stated they live at home with their . The patient stated they use a walker at base [place]. The patient stated they did not have prior right hip pain. The patient takes Eliquis 5 mg twice daily for anticoagulation that they stopped on 02/23/2025 for your upcoming back procedure. The patient stated they have isolated right hip pain. They deny hitting their head or loss of consciousness. Patient denied chest pain and shortness or breath. X-rays of the pelvis taken in the ER on 02/26/2025 revealed a right femoral neck fracture. Patient was admitted to orthopedics with consult to internal medicine for medical management. Patient was seen in the emergency department this morning. On 02/21/2020 the patient underwent right direct anterior hip hemiarthroplasty by Dr. Arboleda. Patient tolerated the procedure well. Patient was transferred to the orthopedic floor. The patient worked with physical therapy and it was determined the patient could discharge home at time of discharge. Internal medicine managed the patient's medical conditions. His pain was controlled with oral norco. Patient was examined at bedside today. Patient is resting comfortably in bed. No apparent distress. They are awake, alert and able to answer questions. Inspection: The surgical dressing is intact, there is no drainage or strikethrough. The skin surrounding the dressing is free of erythema. There is mild swelling in the operative thigh. Palpation: The operative calf is soft to compression. No calf tenderness. Neurovascular: Operative femoral nerve function is intact. The patient is able to actively plantarflex and dorsiflex their operative ankle and toes. Operative extremity sensation is intact to light touch throughout Their operative foot appears well perfused, palpable dorsalis pedis pulse, and capillary refill under 2 seconds. Patient worked with physical therapy and it was determined they could discharge home. Plan to discharge home today if cleared by internal medicine team. We appreciate internal medicine for the medical management of this patient. Plan follow up in two weeks in our office. Please see med rec for a list of accurate medications. Assessment: Postop day #3 status post right direct anterior hip hemiarthroplasty Right femoral neck fracture secondary to fall,status post hemiarthroplasty Intractable nausea,vomiting and bloating, abdominal x-ray reported prominent air and stool-filled large bowel loops. NG tube inserted, evaluated by general surgery/trauma. No further recommendations at this time. Acute hypoxic respiratory failure, apparent concerns for witnessed aspiration, possible aspiration pneumonitis or atelectasis, CT reported bilateral lower lobe atelectasis/airspace disease. Osteoarthritis Degenerative disc disease, scheduled for minimally invasive back procedure at [facility] History of falls Gait dysfunction, uses walker x 2-years History of throat cancer , surgical and radiation treatment Paroxysmal atrial fibrillation, anticoagulation resumed PPM Hypertension Hyperlipidemia Prostate disorder Former nicotine dependence Patient Condition at Discharge: Fair Plan - Discharge Summary New Discharge Prescriptions: New Omeprazole 20 mg PO DAILY #30 tab Docusate [Colace] 100 mg PO BID #60 capsule HYDROcodone/APAP 5-325MG [Brandon 5] 1 - 2 each PO Q6HR PRN #24 tab PRN Reason: Pain No Action hydroCHLOROthiazide 25 mg PO DAILY Apixaban [Eliquis] 5 mg PO BID Atorvastatin [Lipitor] 20 mg PO HS Flecainide Acetate [Tambocor] 100 mg PO BID Potassium Chloride ER [K-Dur 10] 10 meq PO DAILY Metoprolol Tartrate 25 mg PO BID Acetaminophen Tab [Tylenol Tab] 1,000 mg PO Q6H PRN PRN Reason: Pain Econazole Nitrate [Econazole Nitrate 1%] 1 applic TOPICAL DAILY Ketoconazole 2% Cream [Nizoral 2%] 1 applic TOPICAL DAILY Discharge Medication List hydroCHLOROthiazide 25 mg PO DAILY 06/16/20 [History] Potassium Chloride ER [K-Dur 10] 10 meq PO DAILY 03/29/23 [History] Metoprolol Tartrate 25 mg PO BID 05/02/23 [History] Acetaminophen Tab [Tylenol Tab] 1,000 mg PO Q6H PRN 02/26/25 [History] Apixaban [Eliquis] 5 mg PO BID 02/26/25 [History] Atorvastatin [Lipitor] 20 mg PO HS 02/26/25 [History] Econazole Nitrate [Econazole Nitrate 1%] 1 applic TOPICAL DAILY 02/26/25 [Hi story] Flecainide Acetate [Tambocor] 100 mg PO BID 02/26/25 [History] Ketoconazole 2% Cream [Nizoral 2%] 1 applic TOPICAL DAILY 02/26/25 [History] Docusate [Colace] 100 mg PO BID #60 capsule 03/03/25 [Rx] HYDROcodone/APAP 5-325MG [Brandon 5] 1 - 2 each PO Q6HR PRN #24 tab 03/03/25 [Rx] Omeprazole 20 mg PO DAILY #30 tab 03/03/25 [Rx] Follow up Appointment(s)/Referral(s): [facility], [NON-STAFF] - 1 Week Sherwin Mena DO [Primary Care Provider] - 1 Week () [facility] [NON-STAFF] - 1 Week Jimenez Maldonado MD [Medical Doctor] - 03/12/25 2:15 pm (With Jeff) Activity/Diet/Wound Care/Special Instructions: 1. Weight-bear as tolerated on your operative extremity unless instructed otherwise. Use a walker or other assistive device to ambulate. 2. Leave surgical dressing in place for 14 days. If your dressing becomes saturated with blood, there is drainage, or the dressing becomes loose please contact the office. 3. It is okay to shower with your surgical dressing, but do not submerge in water (no hot tubs, bath's, swimming etc.) 4. Take your blood clot prevention medication as prescribed (aspirin, Eliquis, Xarelto, and Plavix are commonly prescribed medications for blood clot prevention) 5. While taking Brandon or Percocet for pain take a stool softener (Ex: Colace) and drink lots of water. 6. Keep all follow-up appointments as scheduled. You will usually be seen in 1-2 weeks following surgery. 7. Please contact the office with any questions or concerns [facility] [phone]. CBC, BMP in 3 days Discharge Disposition: HOME WITH HOME HEALTH SERVICES
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
[2025-03-03 15:28] VITALS: BP 138/65; PULSE 60
== END 2025-03-03 16:15 | disposition home health service (06) | DRG 521 ==
LOC: EC 06:58 → 4SSUR 08:20
PROVIDERS: ADMIT Orthopaedic Surgery; ATTEND Orthopaedic Surgery
PROC: 0D9670Z Drainage of Stomach with Drainage Device, Via Natural or Artificial Opening (ICD-10-PCS; 2025-02-26)
PROC: 0SRR0J9 Replacement of Right Hip Joint, Femoral Surface with Synthetic Substitute, Cemented, Open Approach (ICD-10-PCS; principal; 2025-02-28 09:00)
PROC: 8E0YXBF Computer Assisted Procedure of Lower Extremity, With Fluoroscopy (ICD-10-PCS; principal; 2025-02-28 09:00)
DX: S72.011A Unspecified intracapsular fracture of right femur, initial encounter for closed fracture (principal); J96.01 Acute respiratory failure with hypoxia; K56.600 Partial intestinal obstruction, unspecified as to cause; J81.1 Chronic pulmonary edema; D62 Acute posthemorrhagic anemia; K56.7 Ileus, unspecified; L03.115 Cellulitis of right lower limb; I10 Essential (primary) hypertension; I73.9 Peripheral vascular disease, unspecified; I48.0 Paroxysmal atrial fibrillation; E78.5 Hyperlipidemia, unspecified; W01.0XXA Fall on same level from slipping, tripping and stumbling without subsequent striking against object, initial encounter; M17.0 Bilateral primary osteoarthritis of knee; M51.369 Other intervertebral disc degeneration, lumbar region without mention of lumbar back pain or lower extremity pain; K21.9 Gastro-esophageal reflux disease without esophagitis; G89.29 Other chronic pain; M48.061 Spinal stenosis, lumbar region without neurogenic claudication; R26.9 Unspecified abnormalities of gait and mobility; M81.0 Age-related osteoporosis without current pathological fracture; N40.0 Benign prostatic hyperplasia without lower urinary tract symptoms; Z79.01 Long term (current) use of anticoagulants; R29.6 Repeated falls; Z79.82 Long term (current) use of aspirin; Z79.899 Other long term (current) drug therapy; Z85.819 Personal history of malignant neoplasm of unspecified site of lip, oral cavity, and pharynx; Z85.828 Personal history of other malignant neoplasm of skin; Z86.73 Personal history of transient ischemic attack (TIA), and cerebral infarction without residual deficits; Z91.81 History of falling; Z87.891 Personal history of nicotine dependence; Z92.3 Personal history of irradiation; Z96.641 Presence of right artificial hip joint; Z88.0 Allergy status to penicillin; Z88.1 Allergy status to other antibiotic agents; Z88.2 Allergy status to sulfonamides; Z85.01 Personal history of malignant neoplasm of esophagus; Z95.0 Presence of cardiac pacemaker; Z98.42 Cataract extraction status, left eye; Z98.41 Cataract extraction status, right eye
CPT/HCPCS: 36415; 71045; 71046; 73501; 73502; 74018; 74176; 80048; 80053; 81003; 83735; 85025; 85610; 85730; 93005; 94640; 94760; 96374; 96375; 96376; 99285